=== PATIENT | male | born 1950 | race Caucasian/White ===

== ENCOUNTER 2019-02-18 09:39 | Inpatient (IN) | payer MEDICARE, MEDICAID ==
[~2019-02-18] VITALS: Ht 177.8 cm; Wt 85.3 kg
--- NOTE | 2019-02-18 10:14 | NUR ---
Pt to room from lobby.
[2019-02-18 10:24] LABS: MEAN CORPUSCULAR HEMOGLOBIN 32.8 pg (27.5-34.5); MEAN CORPUSCULAR HGB CONC 33.8 g/dL (33.2-36.2); MEAN PLATELET VOLUME 7.1 fL (7.4-10.4); PLATELET COUNT 469 x10^3/uL (130-400); RED BLOOD COUNT 4.97 x10^6/uL (4.38-5.82); RED CELL DISTRIBUTION WIDTH 13.4 % (9.4-14.8)
[2019-02-18] MEDS ORDERED: SODIUM CHLORIDE FLUSH 10ML SYR IVF ONE (10:30)
[2019-02-18 11:04] LABS: MD YES
[2019-02-18 11:06] LABS: BAND#(MANUAL) 4.13 x10^3/uL; BANDS%(MANUAL) 43 % (0-7); LYMPH#(MANUAL) 1.06 x10^3/uL (1-3.4); LYMPHS% (MANUAL) 11 % (22-44); METAMYELOCYTES% (MANUAL) 1 % (0-1); MONOS#(MANUAL) 0.96 x10^3/uL (0.3-2.7); MONOS% (MANUAL) 10 % (2-9); SEG#(MANUAL) 3.36 x10^3/uL (1.8-6.8); SEGS% (MANUAL) 35 % (42-75)
[2019-02-18 11:07] LABS: <PLATELET ESTIMATE> INCREASED; <PLT MORPHOLOGY> NORMAL PLT MORPH; <RBC MORPHOLOGY> NORMAL; PMNS WITH VACUOLES 1+
[2019-02-18 11:10] LABS: ALBUMIN 2.6 g/dL (3.4-5.0); ANION GAP 10 mmol/L (5-15); CALCIUM 8.9 mg/dL (8.5-10.1); CHLORIDE 99 mmol/L (98-107)
[2019-02-18 11:15] LABS: ALANINE AMINOTRANSFERASE 8 U/L (12-78); ALKALINE PHOSPHATASE 91 U/L (45-117); TOTAL PROTEIN 7.6 g/dL (6.4-8.2)
--- NOTE | 2019-02-18 11:18 | NUR ---
DIARRHEA, EATING MINIMALLY FOR 3 WEEKS WITH CRAMPING FOR A FEW DAYS.
[2019-02-18] MEDS ORDERED: SODIUM CHLORIDE 0.9%, 500ML IVBOLUS ONE (11:30)
--- NOTE | 2019-02-18 11:38 | NUR ---
MD EXAMING PT AND DISCUSSING PLAN TO ADMIT
--- NOTE | 2019-02-18 11:45 | NUR ---
UOB TO BATHROOM ACROSS THE WAY
[2019-02-18] MEDS ORDERED: METRONIDAZOLE PMX 500MG/100ML 100 ML ONE (12:24)
[2019-02-18] MEDS ORDERED: CEFTRIAXONE PMX 1GM/50ML 50 ML ONE (12:25)
[2019-02-18 12:27] LABS: TROPONIN I < 0.015 ng/mL (0.000-0.045)
[2019-02-18] MEDS: NS + 40MEQ KCL 1,000 ML IV SCH ×2 (12:28→15:30)
[2019-02-18] MEDS ORDERED: METRONIDAZOLE PMX 500MG/100ML 100 ML IV ONE (12:30)
[2019-02-18] MEDS ORDERED: CEFTRIAXONE PMX 1GM/50ML 50 ML IV ONE (12:30)
--- NOTE | 2019-02-18 12:42 | NUR ---
ANTIBIOTIC INFUSING NOTED ON MAR AFTER 2 SETS OF CULTURES DRAWN. ULTRASOUND AT BEDSIDE.
[2019-02-18 12:50] LABS: CLOSTRIDIUM DIFFICILE ANTIGEN NEGATIVE; CLOSTRIDIUM DIFFICILE TOXIN NEGATIVE (Negative)
--- NOTE | 2019-02-18 12:52 | NUR ---
REPORT TO CHAPARRITA LAN. PT TO BE TRANSPORTED TO FLOOR.
[2019-02-18] MEDS ORDERED: POLYETHYLENE GLYCOL 17 GM PACKET PO PRN (13:00)
[2019-02-18] MEDS ORDERED: hydrALAzine 20 MG/ML, 1ML IVPush PRN (13:00)
[2019-02-18] MEDS ORDERED: SODIUM CHLORIDE 0.9% 1,000ML IVBOLUS ONE (13:00)
[2019-02-18] MEDS ORDERED: KETOROLAC 30 MG/1 ML IV PRN (13:00)
[2019-02-18] MEDS ORDERED: ONDANSETRON ODT 4 MG PO PRN (13:00)
[2019-02-18] MEDS ORDERED: GUAIFENESIN/DM 200-20MG, 10ML UDC PO PRN (13:00)
[2019-02-18] MEDS ORDERED: IBUPROFEN 600 MG TABLET PO PRN (13:00)
--- NOTE | 2019-02-18 13:15 | NUR ---
TASK RN: ABX WAS NOT RUNNING, PUMP WITH NaCl with 40mEq POTASSIUM WAS RUNNING. D/C POTASSIUM IN NACL, RESTARTED LINE WITH ROCEPHIN. ABX RUNNING. PATIENT SENT UP WITH FLAGYL AND NACL WITH POTASSIUM AT BEDSIDE.
[2019-02-18 13:18] LABS: CRYPTOSPORIDIUM ANTIGEN Negative (Negative)
[2019-02-18] MEDS: METRONIDAZOLE PMX 500MG/100ML 100 ML IV SCH ×2 (14:00→21:56)
[2019-02-18] MEDS: ACETAMINOPHEN 325 MG TABLET PO PRN (14:02)
[2019-02-18 14:03] VITALS: BP 147/84
[2019-02-18] MEDS: ONDANSETRON 2MG/ML, 2ML IVPush PRN (14:07)
[2019-02-18] MEDS ORDERED: MAGNESIUM SULFATE PMX 2GM/50ML 50 ML IV ONE (14:30)
[2019-02-18] MEDS ORDERED: CEFTRIAXONE PMX 1GM/50ML 50 ML IV SCH (14:30)
[2019-02-18] MEDS ORDERED: CHOLECALCIFEROL 400 UNITS/ML ORAL SOL PO SCH (16:30)
[2019-02-18] MEDS: POTASSIUM CHLORIDE 10 MEQ TABLET.ER PO SCH (17:51)
[2019-02-18] MEDS: ASCORBIC ACID 500 MG TABLET PO SCH (17:51)
[2019-02-18 19:53] VITALS: BP 136/77
[2019-02-18] MEDS ORDERED: POTASSIUM CHLORIDE 10% 40 MEQ/30 ML UDC PO SCH (21:00)
[2019-02-19 02:00] VITALS: BP 122/79
[2019-02-19] MEDS: METRONIDAZOLE PMX 500MG/100ML 100 ML IV SCH ×3 (06:00→21:53)
[2019-02-19 06:06] LABS: MEAN CORPUSCULAR HEMOGLOBIN 32.8 pg (27.5-34.5); MEAN CORPUSCULAR HGB CONC 33.4 g/dL (33.2-36.2); MEAN CORPUSCULAR VOLUME 98.1 fL (81-97); MEAN PLATELET VOLUME 7.8 fL (7.4-10.4); PLATELET COUNT 479 x10^3/uL (130-400); RED BLOOD COUNT 4.55 x10^6/uL (4.38-5.82); RED CELL DISTRIBUTION WIDTH 13.7 % (9.4-14.8)
[2019-02-19 06:22] LABS: ANION GAP 6 mmol/L (5-15); CALCIUM 8.6 mg/dL (8.5-10.1); CHLORIDE 106 mmol/L (98-107); CREATININE 1.12 mg/dL (0.7-1.3)
[2019-02-19 06:57] LABS: MD YES
[2019-02-19 07:02] LABS: <RBC MORPHOLOGY> NORMAL; BAND#(MANUAL) 3.31 x10^3/uL; BANDS%(MANUAL) 36 % (0-7); LYMPHS% (MANUAL) 12 % (22-44); MONOS#(MANUAL) 0.83 x10^3/uL (0.3-2.7); MONOS% (MANUAL) 9 % (2-9); MYELOCYTES# (MANUAL) 0.09 x10^3/uL (0-0); MYELOCYTES% (MANUAL) 1 % (0-0); SEG#(MANUAL) 3.86 x10^3/uL (1.8-6.8); SEGS% (MANUAL) 42 % (42-75)
[2019-02-19 07:03] LABS: <PLATELET ESTIMATE> INCREASED; <PLT MORPHOLOGY> NORMAL PLT MORPH; TOXIC GRAN 1+
[2019-02-19] MEDS ORDERED: POTASSIUM CHLORIDE 20 MEQ TAB.ER.PRT PO ONE ×2 (07:30→10:30)
[2019-02-19] MEDS: POTASSIUM CHLORIDE 10 MEQ TABLET.ER PO SCH ×2 (08:00→17:40)
[2019-02-19] MEDS ORDERED: ACETAMINOPHEN 500 MG TABLET PO ONE (08:00)
[2019-02-19] MEDS: CHOLECALCIFEROL 1,000 UNIT TABLET PO SCH (08:35)
[2019-02-19] MEDS: MULTIVITS,STRESS FORMULA 1 TABLET PO SCH (08:35)
[2019-02-19] MEDS: ASCORBIC ACID 500 MG TABLET PO SCH ×2 (08:35→17:40)
[2019-02-19] MEDS: LACTATED RINGERS 1,000 ML IV SCH ×3 (08:40→21:55)
[2019-02-19 09:03] VITALS: BP 110/69
[2019-02-19] MEDS: CEFTRIAXONE PMX 1GM/50ML 50 ML IV SCH (12:43)
[2019-02-19 14:19] VITALS: BP 115/77
[2019-02-19 16:56] LABS: ANION GAP 5 mmol/L (5-15); CALCIUM 8.3 mg/dL (8.5-10.1); CHLORIDE 110 mmol/L (98-107); CREATININE 1.01 mg/dL (0.7-1.3)
[2019-02-19] MEDS: ACETAMINOPHEN 325 MG TABLET PO PRN ×2 (19:54→23:57)
[2019-02-19] MEDS ORDERED: LACTATED RINGERS 1,000 ML IVBOLUS ONE (20:00)
[2019-02-19] MEDS: TRAZODONE 50MG TABLET PO PRN (20:49)
[2019-02-19] MEDS ORDERED: LORazepam 2 MG/ML, 1ML IVPush PRN (21:00)
[2019-02-19] MEDS: METOCLOPRAMIDE 5 MG/ML, 2ML IVPush PRN (21:18)
[2019-02-20 00:10] LABS: CULTURE INDICATED? YES; MICROSCOPIC INDICATED
[2019-02-20] MEDS: CEFTRIAXONE PMX 1GM/50ML 50 ML IV SCH (00:39)
[2019-02-20 04:00] VITALS: BP 120/64
[2019-02-20 04:26] LABS: MEAN CORPUSCULAR HEMOGLOBIN 32.5 pg (27.5-34.5); MEAN CORPUSCULAR HGB CONC 33.1 g/dL (33.2-36.2); MEAN CORPUSCULAR VOLUME 98.4 fL (81-97); MEAN PLATELET VOLUME 7.6 fL (7.4-10.4); PLATELET COUNT 402 x10^3/uL (130-400); RED BLOOD COUNT 4.02 x10^6/uL (4.38-5.82)
[2019-02-20 05:00] LABS: ANION GAP 7 mmol/L (5-15); CALCIUM 8.2 mg/dL (8.5-10.1); CHLORIDE 110 mmol/L (98-107)
[2019-02-20 05:02] LABS: CREATININE 1.03 mg/dL (0.7-1.3)
[2019-02-20 05:35] LABS: MD YES
[2019-02-20 05:38] LABS: BAND#(MANUAL) 3.44 x10^3/uL; BANDS%(MANUAL) 42 % (0-7); EOS#(MANUAL) 0.08 x10^3/uL (0.0-0.4); EOS% (MANUAL) 1 % (1-7); LYMPH#(MANUAL) 0.66 x10^3/uL (1-3.4); LYMPHS% (MANUAL) 8 % (22-44); METAMYELOCYTES# (MANUAL) 0.16 x10^3/uL (0-0); METAMYELOCYTES% (MANUAL) 2 % (0-1); MONOS#(MANUAL) 0.25 x10^3/uL (0.3-2.7); MONOS% (MANUAL) 3 % (2-9); SEG#(MANUAL) 3.61 x10^3/uL (1.8-6.8); SEGS% (MANUAL) 44 % (42-75)
[2019-02-20 05:39] LABS: <RBC MORPHOLOGY> NORMAL
[2019-02-20 05:40] LABS: <PLATELET ESTIMATE> INCREASED; <PLT MORPHOLOGY> NORMAL PLT MORPH; PMNS WITH VACUOLES 1+; TOXIC GRAN 1+
[2019-02-20] MEDS: METRONIDAZOLE PMX 500MG/100ML 100 ML IV SCH ×2 (05:57→20:16)
[2019-02-20] MEDS ORDERED: SODIUM PHOSPHATE 10 MMOL in SODIUM CHLORIDE 0.9% 500 ML IV ONE (07:30)
[2019-02-20] MEDS ORDERED: POTASSIUM CHLORIDE 20 MEQ TAB.ER.PRT PO ONE (07:30)
[2019-02-20] MEDS: SODIUM CHLORIDE 0.9% 1,000 ML IV SCH ×2 (08:26→11:47)
[2019-02-20] MEDS: MULTIVITS,STRESS FORMULA 1 TABLET PO SCH (08:26)
[2019-02-20] MEDS: CHOLECALCIFEROL 1,000 UNIT TABLET PO SCH (08:26)
[2019-02-20] MEDS: ASCORBIC ACID 500 MG TABLET PO SCH ×2 (08:31→17:00)
[2019-02-20 09:14] LABS: CRYPTOSPORIDIUM ANTIGEN Negative (Negative)
[2019-02-20] MEDS: ACETAMINOPHEN 325 MG TABLET PO PRN (09:56)
[2019-02-20] MEDS ORDERED: CEFTRIAXONE PMX 1GM/50ML 50 ML IV SCH (11:30)
[2019-02-20] MEDS ORDERED: metroNIDAZOLE 250 MG TABLET PO SCH (12:00)
[2019-02-20] MEDS: LORazepam 2 MG/ML, 1ML IVPush PRN (17:11)
[2019-02-20] MEDS ORDERED: ACETAMINOPHEN 650 MG SUPP ONE (21:14)
[2019-02-20] MEDS: HYDROmorphone 2 MG/ML, 1ML IVPush PRN (21:23)
[2019-02-20] MEDS ORDERED: ACETAMINOPHEN 650 MG SUPP PR ONE (21:30)
[2019-02-20] MEDS: PIPERACILLIN/TAZO/PMX 3.375GM 50 ML IV SCH (23:03)
[2019-02-20] MEDS ORDERED: OMNIPAQUE 350 MG/ML, 100ML BOTTLE ONE (23:28)
[2019-02-21] MEDS: METRONIDAZOLE PMX 500MG/100ML 100 ML IV SCH (03:51)
[2019-02-21 04:16] VITALS: BP 127/66
[2019-02-21] MEDS: PIPERACILLIN/TAZO/PMX 3.375GM 50 ML IV SCH ×4 (05:22→21:59)
[2019-02-21] MEDS: ASCORBIC ACID 500 MG TABLET PO SCH ×2 (08:00→17:00)
[2019-02-21] MEDS: MULTIVITS,STRESS FORMULA 1 TABLET PO SCH (08:05)
[2019-02-21] MEDS: CHOLECALCIFEROL 1,000 UNIT TABLET PO SCH (08:06)
[2019-02-21] MEDS: SODIUM CHLORIDE 0.9% 1,000 ML IV SCH ×2 (10:12→19:19)
[2019-02-21] MEDS ORDERED: PROPOFOL 10 MG/ML, 20ML ONE (10:54)
[2019-02-21] MEDS ORDERED: SUCCINYLCHOLINE 20 MG/ML, 10ML ONE (10:54)
[2019-02-21] MEDS ORDERED: ONDANSETRON 2MG/ML, 2ML ONE (10:54)
[2019-02-21] MEDS ORDERED: FENTANYL PF 100 MCG/2ML ONE (10:54)
[2019-02-21] MEDS ORDERED: ROCURONIUM 10MG/ML,5ML ONE (10:54)
[2019-02-21] MEDS ORDERED: DEXAMETHASONE 4 MG/ML, 1ML ONE (10:54)
[2019-02-22] MEDS: TRAZODONE 50MG TABLET PO PRN (01:34)
[2019-02-22] MEDS: SODIUM CHLORIDE 0.9% 1,000 ML IV SCH ×2 (04:22→17:05)
[2019-02-22] MEDS: PIPERACILLIN/TAZO/PMX 3.375GM 50 ML IV SCH ×4 (04:35→22:10)
[2019-02-22] MEDS ORDERED: SODIUM PHOSPHATE 20 MMOL in SODIUM CHLORIDE 0.9% 500 ML IV ONE (07:30)
[2019-02-22] MEDS: ASCORBIC ACID 500 MG TABLET PO SCH ×2 (08:00→17:06)
[2019-02-22] MEDS: MULTIVITS,STRESS FORMULA 1 TABLET PO SCH (08:14)
[2019-02-22] MEDS: CHOLECALCIFEROL 1,000 UNIT TABLET PO SCH (08:14)
[2019-02-22 08:18] LABS: MEAN CORPUSCULAR HEMOGLOBIN 32.4 pg (27.5-34.5); MEAN CORPUSCULAR HGB CONC 33.3 g/dL (33.2-36.2); MEAN CORPUSCULAR VOLUME 97.3 fL (81-97); MEAN PLATELET VOLUME 7.1 fL (7.4-10.4); PLATELET COUNT 365 x10^3/uL (130-400); RED BLOOD COUNT 4.43 x10^6/uL (4.38-5.82); RED CELL DISTRIBUTION WIDTH 14.4 % (9.4-14.8)
[2019-02-22 09:45] LABS: BASOPHILS # (AUTO) 0.03 x10^3/uL (0-0.1); BASOPHILS % (AUTO) 0 % (0-1); EOSINOPHILS # (AUTO) 0.01 x10^3/uL (0-0.4); EOSINOPHILS % (AUTO) 0 % (1-7); LYMPHOCYTES % (AUTO) 5 % (22-44); MD SCAN; MONOCYTES % (AUTO) 10 % (2-9); NEUTROPHILS # (AUTO) 12.48 x10^3/uL (1.8-6.8); NEUTROPHILS % (AUTO) 85 % (42-75)
[2019-02-22 16:03] LABS: CRYPTOSPORIDIUM ANTIGEN Negative (Negative)
[2019-02-22 21:22] VITALS: BP 137/83
[2019-02-22] MEDS ORDERED: DEXAMETHASONE 4 MG/ML, 1ML IVPush ONE (21:30)
[2019-02-23 01:56] VITALS: BP 129/82
[2019-02-23] MEDS: PIPERACILLIN/TAZO/PMX 3.375GM 50 ML IV SCH ×4 (04:11→23:18)
[2019-02-23] MEDS: SODIUM CHLORIDE 0.9% 1,000 ML IV SCH ×2 (04:12→13:00)
[2019-02-23 05:38] LABS: BASOPHILS % (AUTO) 0 % (0-1); EOSINOPHILS # (AUTO) 0.04 x10^3/uL (0-0.4); EOSINOPHILS % (AUTO) 0 % (1-7); LYMPHOCYTES # (AUTO) 0.86 x10^3/uL (1-3.4); LYMPHOCYTES % (AUTO) 8 % (22-44); MD NO; MEAN CORPUSCULAR HEMOGLOBIN 32.6 pg (27.5-34.5); MEAN CORPUSCULAR VOLUME 98.6 fL (81-97); MEAN PLATELET VOLUME 7.6 fL (7.4-10.4); MONOCYTES # (AUTO) 0.76 x10^3/uL (0.2-0.8); MONOCYTES % (AUTO) 7 % (2-9); NEUTROPHILS # (AUTO) 8.92 x10^3/uL (1.8-6.8); NEUTROPHILS % (AUTO) 84 % (42-75); PLATELET COUNT 308 x10^3/uL (130-400); RED BLOOD COUNT 4.11 x10^6/uL (4.38-5.82); RED CELL DISTRIBUTION WIDTH 14.2 % (9.4-14.8)
[2019-02-23 08:09] VITALS: BP 150/89
[2019-02-23] MEDS: CHOLECALCIFEROL 1,000 UNIT TABLET PO SCH (10:55)
[2019-02-23] MEDS: MULTIVITS,STRESS FORMULA 1 TABLET PO SCH (10:55)
[2019-02-23] MEDS: ASCORBIC ACID 500 MG TABLET PO SCH ×3 (10:55→17:32)
[2019-02-23 14:25] VITALS: BP 115/64
[2019-02-23 20:12] VITALS: BP 104/64
[2019-02-24 03:06] VITALS: BP 118/69
[2019-02-24] MEDS: PIPERACILLIN/TAZO/PMX 3.375GM 50 ML IV SCH ×4 (05:24→22:44)
[2019-02-24 05:57] LABS: MEAN CORPUSCULAR HEMOGLOBIN 32.6 pg (27.5-34.5); MEAN CORPUSCULAR HGB CONC 33.6 g/dL (33.2-36.2); MEAN PLATELET VOLUME 7.7 fL (7.4-10.4); PLATELET COUNT 273 x10^3/uL (130-400); RED CELL DISTRIBUTION WIDTH 14.4 % (9.4-14.8)
[2019-02-24 06:00] LABS: CHLORIDE 116 mmol/L (98-107)
[2019-02-24 06:11] LABS: ALANINE AMINOTRANSFERASE 16 U/L (12-78); ALBUMIN 1.5 g/dL (3.4-5.0); ALKALINE PHOSPHATASE 83 U/L (45-117); BILIRUBIN,TOTAL 1.2 mg/dL (0.2-1.0); CALCIUM 7.5 mg/dL (8.5-10.1); CREATININE 0.93 mg/dL (0.7-1.3); TOTAL PROTEIN 4.9 g/dL (6.4-8.2)
[2019-02-24 06:20] LABS: MD YES
[2019-02-24 06:21] LABS: BAND#(MANUAL) 1.45 x10^3/uL; BANDS%(MANUAL) 8 % (0-7); LYMPH#(MANUAL) 1.63 x10^3/uL (1-3.4); LYMPHS% (MANUAL) 9 % (22-44); MONOS#(MANUAL) 0.36 x10^3/uL (0.3-2.7); MONOS% (MANUAL) 2 % (2-9); SEG#(MANUAL) 14.66 x10^3/uL (1.8-6.8); SEGS% (MANUAL) 81 % (42-75)
[2019-02-24 06:22] LABS: <PLATELET ESTIMATE> ADEQUATE; <PLT MORPHOLOGY> NORMAL PLT MORPH; <RBC MORPHOLOGY> NORMAL; TOXIC GRAN 1+
[2019-02-24 06:30] LABS: ANION GAP 6 mmol/L (5-15)
[2019-02-24] MEDS ORDERED: POTASSIUM CHLORIDE 40 MEQ in SODIUM CHLORIDE 0.9% 500 ML IV ONE (07:00)
[2019-02-24] MEDS: ASCORBIC ACID 500 MG TABLET PO SCH ×2 (07:40→17:19)
[2019-02-24] MEDS: POTASSIUM CHLORIDE 20 MEQ TAB.ER.PRT PO SCH ×2 (07:40→17:19)
[2019-02-24] MEDS: CHOLECALCIFEROL 1,000 UNIT TABLET PO SCH (07:40)
[2019-02-24] MEDS: MULTIVITS,STRESS FORMULA 1 TABLET PO SCH (07:45)
[2019-02-24 08:02] VITALS: BP 129/65
[2019-02-24] MEDS: TRAZODONE 50MG TABLET PO PRN (10:00)
[2019-02-24 10:54] LABS: HCT (SEDRATE) 40.3 % (39.2-51.8)
[2019-02-24 12:27] VITALS: BP 124/74
[2019-02-24] MEDS: ONDANSETRON 2MG/ML, 2ML IVPush PRN (13:12)
[2019-02-24] MEDS: HYDROmorphone 2 MG/ML, 1ML IVPush PRN (13:12)
[2019-02-24 19:45] VITALS: BP 123/75
[2019-02-24] MEDS: LORazepam 2 MG/ML, 1ML IVPush PRN (22:44)
[2019-02-25 01:43] VITALS: BP 137/82
[2019-02-25] MEDS: PIPERACILLIN/TAZO/PMX 3.375GM 50 ML IV SCH ×4 (05:33→23:05)
[2019-02-25 06:10] LABS: ANION GAP 3 mmol/L (5-15); CALCIUM 7.8 mg/dL (8.5-10.1); CHLORIDE 114 mmol/L (98-107); CREATININE 1.04 mg/dL (0.7-1.3)
[2019-02-25 06:12] LABS: MEAN CORPUSCULAR HEMOGLOBIN 32.1 pg (27.5-34.5); MEAN CORPUSCULAR HGB CONC 33.3 g/dL (33.2-36.2); MEAN CORPUSCULAR VOLUME 96.3 fL (81-97); MEAN PLATELET VOLUME 7.5 fL (7.4-10.4); PLATELET COUNT 309 x10^3/uL (130-400); RED BLOOD COUNT 4.11 x10^6/uL (4.38-5.82); RED CELL DISTRIBUTION WIDTH 13.8 % (9.4-14.8)
[2019-02-25 06:58] LABS: MD YES
[2019-02-25 07:02] LABS: BAND#(MANUAL) 0.22 x10^3/uL; BANDS%(MANUAL) 1 % (0-7); LYMPH#(MANUAL) 1.99 x10^3/uL (1-3.4); LYMPHS% (MANUAL) 9 % (22-44); METAMYELOCYTES# (MANUAL) 0.22 x10^3/uL (0-0); METAMYELOCYTES% (MANUAL) 1 % (0-1); MONOS#(MANUAL) 0.88 x10^3/uL (0.3-2.7); MONOS% (MANUAL) 4 % (2-9); REACTIVE LYMPHS # (MANUAL) 0.44 x10^3/uL (0-0); REACTIVE LYMPHS % (MANUAL) 2 % (0-0); SEG#(MANUAL) 18.34 x10^3/uL (1.8-6.8); SEGS% (MANUAL) 83 % (42-75)
[2019-02-25 07:03] LABS: <PLATELET ESTIMATE> ADEQUATE; <PLT MORPHOLOGY> NORMAL PLT MORPH; <RBC MORPHOLOGY> NORMAL; TOXIC GRAN 1+
[2019-02-25 07:50] VITALS: BP 127/70
[2019-02-25] MEDS: MULTIVITS,STRESS FORMULA 1 TABLET PO SCH (08:43)
[2019-02-25] MEDS: CHOLECALCIFEROL 1,000 UNIT TABLET PO SCH (08:43)
[2019-02-25] MEDS: ASCORBIC ACID 500 MG TABLET PO SCH (08:43)
[2019-02-25] MEDS: ENOXAPARIN 40 MG/0.4 ML SQ SCH (09:43)
[2019-02-25] MEDS: NS + 40MEQ KCL 1,000 ML IV SCH ×2 (09:43→21:31)
[2019-02-25 12:25] VITALS: BP 129/76
[2019-02-25 13:19] LABS: CALCIUM 7.8 mg/dL (8.5-10.1); CREATININE 1.01 mg/dL (0.7-1.3)
[2019-02-25 13:38] LABS: ANION GAP 6 mmol/L (5-15); CHLORIDE 110 mmol/L (98-107)
[2019-02-25] MEDS ORDERED: TPN PER PHARMACY MC PRN (16:00)
[2019-02-25] MEDS ORDERED: FILTER, DISP 1.2 MICRON FOR TPN/PVN IV PRN (16:00)
[2019-02-25] MEDS ORDERED: AMINO ACID 10% IV SCH ×2 (17:00)
[2019-02-25] MEDS ORDERED: DEXTROSE 70% IV SCH ×2 (17:00)
[2019-02-25] MEDS ORDERED: DEXTROSE 50%, 50ML SYRINGE IVPush PRN (17:00)
[2019-02-25] MEDS ORDERED: SMOF TPN IV SCH ×2 (17:00)
[2019-02-25] MEDS ORDERED: DEXTROSE 10% 500 ML IV PRN (17:00)
[2019-02-25] MEDS ORDERED: [UNRECOGNIZED DRUG - OTHER] IV SCH ×2 (17:00)
[2019-02-25] MEDS ORDERED: FAT EMUL IV SCH ×2 (17:00)
[2019-02-25 18:50] VITALS: BP 134/74
[2019-02-25] MEDS: INSULIN REGULAR LOW DOSE Q6H X 48HRS SQ-INSULIN SCH (20:04)
[2019-02-26 01:09] VITALS: BP 133/82
[2019-02-26] MEDS: INSULIN REGULAR LOW DOSE Q6H X 48HRS SQ-INSULIN SCH ×4 (03:00→21:00)
[2019-02-26] MEDS: METOCLOPRAMIDE 5 MG/ML, 2ML IVPush PRN (04:56)
[2019-02-26] MEDS: PIPERACILLIN/TAZO/PMX 3.375GM 50 ML IV SCH ×2 (05:00→11:00)
[2019-02-26 06:04] LABS: MEAN CORPUSCULAR HEMOGLOBIN 31.7 pg (27.5-34.5); MEAN PLATELET VOLUME 7.6 fL (7.4-10.4); PLATELET COUNT 333 x10^3/uL (130-400); RED CELL DISTRIBUTION WIDTH 14.2 % (9.4-14.8)
[2019-02-26 06:09] LABS: ANION GAP 8 mmol/L (5-15); CALCIUM 7.6 mg/dL (8.5-10.1); CHLORIDE 112 mmol/L (98-107); CREATININE 0.88 mg/dL (0.7-1.3); TRIGLYCERIDES 125 mg/dL (50-200)
[2019-02-26 06:13] LABS: PREALBUMIN 5.4 mg/dL (20.0-40.0)
[2019-02-26] MEDS: LORazepam 2 MG/ML, 1ML IVPush PRN (06:16)
[2019-02-26 06:45] LABS: MD YES
[2019-02-26 06:46] LABS: <RBC MORPHOLOGY> NORMAL; BANDS%(MANUAL) 1 % (0-7); LYMPH#(MANUAL) 0.79 x10^3/uL (1-3.4); LYMPHS% (MANUAL) 4 % (22-44); METAMYELOCYTES% (MANUAL) 1 % (0-1); MONOS#(MANUAL) 0.59 x10^3/uL (0.3-2.7); MONOS% (MANUAL) 3 % (2-9); SEG#(MANUAL) 17.93 x10^3/uL (1.8-6.8); SEGS% (MANUAL) 91 % (42-75); TOXIC GRAN 1+
[2019-02-26 06:47] LABS: <PLATELET ESTIMATE> ADEQUATE; <PLT MORPHOLOGY> NORMAL PLT MORPH
[2019-02-26 06:59] VITALS: BP 122/75
[2019-02-26] MEDS: CHOLECALCIFEROL 1,000 UNIT TABLET PO SCH (08:43)
[2019-02-26] MEDS: MULTIVITS,STRESS FORMULA 1 TABLET PO SCH (08:43)
[2019-02-26] MEDS: ENOXAPARIN 40 MG/0.4 ML SQ SCH (08:43)
[2019-02-26] MEDS: ACETAMINOPHEN 325 MG TABLET PO PRN (08:51)
[2019-02-26] MEDS: NS + 40MEQ KCL 1,000 ML IV SCH (09:21)
[2019-02-26] MEDS ORDERED: OMNIPAQUE 350 MG/ML, 100ML BOTTLE ONE (11:55)
[2019-02-26 13:52] VITALS: BP 125/88
[2019-02-26] MEDS ORDERED: VANCOMYCIN PER PHARMACY MC PRN (14:00)
[2019-02-26 14:32] LABS: MICROSCOPIC INDICATED
[2019-02-26] MEDS ORDERED: HYDROmorphone 1 MG/ML, 1ML VIAL ONE ×2 (14:51→20:42)
[2019-02-26] MEDS: MEROPENEM 1 GM in SODIUM CHLORIDE 0.9% 100 ML IV SCH ×2 (14:58→23:11)
[2019-02-26 15:00] LABS: CULTURE INDICATED? NO
[2019-02-26] MEDS ORDERED: HYDROmorphone 1 MG/ML, 1ML INJ IV PRN (15:00)
[2019-02-26] MEDS ORDERED: VANCOMYCIN 2,100 MG in SODIUM CHLORIDE 0.9% 500 ML IV ONE (15:00)
[2019-02-26] MEDS ORDERED: FENTANYL PF 250 MCG/5ML ONE (16:16)
[2019-02-26] MEDS ORDERED: MIDAZOLAM 1 MG/ML, 2ML ONE (16:16)
[2019-02-26] MEDS ORDERED: PROPOFOL 10 MG/ML, 20ML ONE (16:17)
[2019-02-26] MEDS ORDERED: DEXAMETHASONE 4 MG/ML, 1ML ONE ×2 (16:18→19:39)
[2019-02-26] MEDS ORDERED: PHENYLEPHRINE 10 MG/ML ONE (16:46)
[2019-02-26] MEDS: DEXTROSE 70% IV SCH ×2 (16:47→23:14)
[2019-02-26] MEDS: [UNRECOGNIZED DRUG - OTHER] IV SCH ×2 (16:47→23:14)
[2019-02-26] MEDS: SMOF TPN IV SCH ×2 (16:47→23:14)
[2019-02-26] MEDS: FAT EMUL IV SCH ×2 (16:47→23:14)
[2019-02-26] MEDS: AMINO ACID 10% IV SCH ×2 (16:47→23:14)
[2019-02-26] MEDS ORDERED: SODIUM CHLORIDE 0.9% 1,000 ML IV SCH (17:00)
[2019-02-26] MEDS ORDERED: ALBUMIN HUMAN 5% 500 ML ONE ×2 (17:52→18:17)
[2019-02-26] MEDS ORDERED: ROCURONIUM 10MG/ML,5ML ONE ×2 (19:39)
[2019-02-26] MEDS ORDERED: ONDANSETRON 2MG/ML, 2ML ONE ×2 (19:39)
[2019-02-26] MEDS ORDERED: SUGAMMADEX 200 MG/2 ML IVPush ONE (19:39)
[2019-02-26] MEDS ORDERED: PROMETHAZINE 25 MG/ML, 1ML IV PRN (20:30)
[2019-02-26] MEDS ORDERED: OXYcodone 5 MG/5 ML ORAL.SOL UDC PO PRN (20:30)
[2019-02-26] MEDS ORDERED: ALBUTEROL SULFATE 2.5 MG/3 ML NPPB PRN (20:30)
[2019-02-26] MEDS ORDERED: hydrALAzine 20 MG/ML, 1ML IV PRN (20:30)
[2019-02-26] MEDS ORDERED: PROMETHAZINE 12.5 MG SUPP PR PRN (20:30)
[2019-02-26] MEDS ORDERED: LABETALOL 5MG/ML, 20ML IV PRN (20:30)
[2019-02-26] MEDS ORDERED: FENTANYL PF 100 MCG/2ML IV PRN (20:30)
[2019-02-26] MEDS ORDERED: DIAZEPAM 5 MG/ML, 2ML IVPush PRN (20:30)
[2019-02-26] MEDS ORDERED: ONDANSETRON ODT 8 MG PO PRN (20:30)
[2019-02-26] MEDS ORDERED: HALOPERIDOL 5 MG/ML IV PRN (20:30)
[2019-02-26] MEDS ORDERED: MEPERIDINE/PF 25MG/ML,1ML IVPush PRN (20:30)
[2019-02-26] MEDS ORDERED: EPHEDRINE 50 MG/ML, 1ML IVPush PRN (20:30)
[2019-02-26] MEDS ORDERED: MIDAZOLAM 1 MG/ML, 2ML IV PRN (20:30)
[2019-02-26] MEDS ORDERED: ONDANSETRON 2MG/ML, 2ML IV PRN (20:30)
[2019-02-26] MEDS: HYDROmorphone 2 MG/ML, 1ML IVPush PRN ×2 (20:43→21:01)
[2019-02-26 21:38] VITALS: BP 133/73
[2019-02-27 01:52] VITALS: BP 135/83
[2019-02-27] MEDS: VANCOMYCIN 1,300 MG in SODIUM CHLORIDE 0.9% 250 ML IV SCH ×2 (02:50→15:38)
[2019-02-27] MEDS: INSULIN REGULAR LOW DOSE Q6H X 48HRS SQ-INSULIN SCH ×2 (03:27→08:40)
[2019-02-27] MEDS: MEROPENEM 1 GM in SODIUM CHLORIDE 0.9% 100 ML IV SCH ×3 (06:11→22:45)
[2019-02-27 06:34] LABS: MEAN CORPUSCULAR HEMOGLOBIN 32.1 pg (27.5-34.5); MEAN CORPUSCULAR HGB CONC 33.2 g/dL (33.2-36.2); MEAN CORPUSCULAR VOLUME 96.9 fL (81-97); MEAN PLATELET VOLUME 7.2 fL (7.4-10.4); PLATELET COUNT 372 x10^3/uL (130-400); RED BLOOD COUNT 3.75 x10^6/uL (4.38-5.82); RED CELL DISTRIBUTION WIDTH 14.5 % (9.4-14.8)
[2019-02-27 06:38] LABS: ANION GAP 3 mmol/L (5-15); CALCIUM 7.4 mg/dL (8.5-10.1); CHLORIDE 115 mmol/L (98-107); CREATININE 0.89 mg/dL (0.7-1.3)
[2019-02-27 06:58] LABS: MD YES
[2019-02-27 07:00] LABS: <PLATELET ESTIMATE> ADEQUATE; <PLT MORPHOLOGY> NORMAL PLT MORPH; LYMPH#(MANUAL) 0.28 x10^3/uL (1-3.4); LYMPHS% (MANUAL) 1 % (22-44); MONOS#(MANUAL) 0.28 x10^3/uL (0.3-2.7); MONOS% (MANUAL) 1 % (2-9); SEG#(MANUAL) 27.24 x10^3/uL (1.8-6.8); SEGS% (MANUAL) 98 % (42-75)
[2019-02-27 07:01] LABS: POLYCHROMASIA 1+; TOXIC GRAN 1+
[2019-02-27 07:30] VITALS: BP 134/83
[2019-02-27] MEDS ORDERED: SODIUM CHLORIDE 0.9% 100 ML IV SCH (08:00)
[2019-02-27] MEDS ORDERED: SODIUM CHLORIDE 0.9% 1,000 ML IV SCH (08:00)
[2019-02-27] MEDS: SODIUM CHLORIDE 0.9% 1,000 ML IV SCH (08:26)
[2019-02-27] MEDS: ENOXAPARIN 40 MG/0.4 ML SQ SCH (08:40)
[2019-02-27] MEDS: CHOLECALCIFEROL 1,000 UNIT TABLET PO SCH (08:40)
[2019-02-27] MEDS: MULTIVITS,STRESS FORMULA 1 TABLET PO SCH (08:40)
[2019-02-27] MEDS: PANTOPRAZOLE 40 MG IV IVPush SCH ×2 (09:31→21:22)
[2019-02-27 14:30] VITALS: BP 151/91
[2019-02-27] MEDS: INSULIN REGULAR MEDIUM DOSE Q6H X 48HRS SQ-INSULIN SCH ×2 (15:45→21:00)
[2019-02-27] MEDS ORDERED: SMOF TPN IV SCH (17:00)
[2019-02-27] MEDS ORDERED: AMINO ACID 10% IV SCH (17:00)
[2019-02-27] MEDS ORDERED: FAT EMUL IV SCH (17:00)
[2019-02-27] MEDS ORDERED: [UNRECOGNIZED DRUG - OTHER] IV SCH (17:00)
[2019-02-27] MEDS ORDERED: DEXTROSE 70% IV SCH (17:00)
[2019-02-27] MEDS: FILTER, DISP 1.2 MICRON FOR TPN/PVN IV PRN (17:53)
[2019-02-27 19:38] VITALS: BP 157/80
[2019-02-27] MEDS ORDERED: INSULIN REGULAR LOW DOSE QDAY SQ-INSULIN SCH (21:00)
[2019-02-27] MEDS: HYDROmorphone 1 MG/ML, 1ML VIAL IV PRN (21:49)
[2019-02-28 02:50] VITALS: BP 153/91
[2019-02-28] MEDS: INSULIN REGULAR MEDIUM DOSE Q6H X 48HRS SQ-INSULIN SCH ×4 (03:00→20:51)
[2019-02-28] MEDS: VANCOMYCIN 1,300 MG in SODIUM CHLORIDE 0.9% 250 ML IV SCH ×2 (03:02→16:07)
[2019-02-28 03:17] LABS: ALBUMIN 1.5 g/dL (3.4-5.0); ANION GAP 4 mmol/L (5-15); CALCIUM 7.4 mg/dL (8.5-10.1); CHLORIDE 114 mmol/L (98-107); CREATININE 0.79 mg/dL (0.7-1.3)
[2019-02-28 03:43] LABS: MEAN CORPUSCULAR HEMOGLOBIN 32.6 pg (27.5-34.5); MEAN CORPUSCULAR HGB CONC 32.8 g/dL (33.2-36.2); MEAN CORPUSCULAR VOLUME 99.2 fL (81-97); MEAN PLATELET VOLUME 8.4 fL (7.4-10.4); PLATELET COUNT 283 x10^3/uL (130-400); RED BLOOD COUNT 3.41 x10^6/uL (4.38-5.82); RED CELL DISTRIBUTION WIDTH 14.4 % (9.4-14.8)
[2019-02-28 03:44] LABS: MD YES
[2019-02-28 03:46] LABS: ANISOCYTOSIS 1+; LYMPH#(MANUAL) 0.78 x10^3/uL (1-3.4); LYMPHS% (MANUAL) 3 % (22-44); MONOS#(MANUAL) 0.26 x10^3/uL (0.3-2.7); MONOS% (MANUAL) 1 % (2-9); SEG#(MANUAL) 25.06 x10^3/uL (1.8-6.8); SEGS% (MANUAL) 96 % (42-75)
[2019-02-28 03:47] LABS: <PLATELET ESTIMATE> ADEQUATE; <PLT MORPHOLOGY> NORMAL PLT MORPH; POLYCHROMASIA 1+
[2019-02-28] MEDS: SODIUM CHLORIDE 0.9% 1,000 ML IV SCH (06:29)
[2019-02-28] MEDS: MEROPENEM 1 GM in SODIUM CHLORIDE 0.9% 100 ML IV SCH ×3 (06:29→23:24)
[2019-02-28 07:45] VITALS: BP 149/85
[2019-02-28] MEDS: PANTOPRAZOLE 40 MG IV IVPush SCH ×2 (08:31→20:57)
[2019-02-28] MEDS: ENOXAPARIN 40 MG/0.4 ML SQ SCH (08:32)
[2019-02-28] MEDS: MULTIVITS,STRESS FORMULA 1 TABLET PO SCH (08:32)
[2019-02-28] MEDS: CHOLECALCIFEROL 1,000 UNIT TABLET PO SCH (08:32)
[2019-02-28] MEDS: HYDROmorphone 1 MG/ML, 1ML VIAL IV PRN ×3 (08:40→20:57)
[2019-02-28 08:45] VITALS: BP 158/88
[2019-02-28 13:55] VITALS: BP 161/88
[2019-02-28] MEDS: FILTER, DISP 1.2 MICRON FOR TPN/PVN IV PRN (16:34)
[2019-02-28] MEDS ORDERED: FAT EMUL IV SCH (17:00)
[2019-02-28] MEDS ORDERED: DEXTROSE 70% IV SCH (17:00)
[2019-02-28] MEDS ORDERED: SMOF TPN IV SCH (17:00)
[2019-02-28] MEDS ORDERED: AMINO ACID 10% IV SCH (17:00)
[2019-02-28] MEDS ORDERED: [UNRECOGNIZED DRUG - OTHER] IV SCH (17:00)
[2019-02-28 20:33] VITALS: BP 155/90
[2019-03-01 01:46] VITALS: BP 157/88
[2019-03-01] MEDS: INSULIN REGULAR MEDIUM DOSE Q6H X 48HRS SQ-INSULIN SCH ×2 (03:00→08:57)
[2019-03-01] MEDS: HYDROmorphone 1 MG/ML, 1ML VIAL IV PRN ×6 (03:39→23:45)
[2019-03-01] MEDS: VANCOMYCIN 1,300 MG in SODIUM CHLORIDE 0.9% 250 ML IV SCH (03:45)
[2019-03-01 04:37] LABS: ALBUMIN 1.5 g/dL (3.4-5.0); ANION GAP 5 mmol/L (5-15); CALCIUM 7.7 mg/dL (8.5-10.1); CHLORIDE 107 mmol/L (98-107); CREATININE 0.73 mg/dL (0.7-1.3)
[2019-03-01 04:55] LABS: MEAN CORPUSCULAR HEMOGLOBIN 32.1 pg (27.5-34.5); MEAN CORPUSCULAR VOLUME 97.2 fL (81-97); MEAN PLATELET VOLUME 7.8 fL (7.4-10.4); PLATELET COUNT 199 x10^3/uL (130-400); RED BLOOD COUNT 3.79 x10^6/uL (4.38-5.82); RED CELL DISTRIBUTION WIDTH 14.5 % (9.4-14.8)
[2019-03-01 05:19] LABS: MD YES
[2019-03-01 05:21] LABS: ANISOCYTOSIS 1+; BAND#(MANUAL) 0.17 x10^3/uL; BANDS%(MANUAL) 1 % (0-7); EOS#(MANUAL) 0.69 x10^3/uL (0.0-0.4); EOS% (MANUAL) 4 % (1-7); LYMPH#(MANUAL) 0.52 x10^3/uL (1-3.4); LYMPHS% (MANUAL) 3 % (22-44); MONOS#(MANUAL) 0.69 x10^3/uL (0.3-2.7); MONOS% (MANUAL) 4 % (2-9); POLYCHROMASIA 1+; SEG#(MANUAL) 15.14 x10^3/uL (1.8-6.8); SEGS% (MANUAL) 88 % (42-75); TOXIC GRAN 1+
[2019-03-01 05:22] LABS: <PLATELET ESTIMATE> ADEQUATE; <PLT MORPHOLOGY> NORMAL PLT MORPH
[2019-03-01 08:30] VITALS: BP 154/94
[2019-03-01] MEDS: PANTOPRAZOLE 40 MG IV IVPush SCH ×2 (08:36→19:55)
[2019-03-01] MEDS: ENOXAPARIN 40 MG/0.4 ML SQ SCH (08:36)
[2019-03-01] MEDS: MEROPENEM 1 GM in SODIUM CHLORIDE 0.9% 100 ML IV SCH ×3 (08:37→23:40)
[2019-03-01] MEDS: CHOLECALCIFEROL 1,000 UNIT TABLET PO SCH (08:57)
[2019-03-01] MEDS: MULTIVITS,STRESS FORMULA 1 TABLET PO SCH (08:57)
[2019-03-01 12:06] VITALS: BP 137/91
[2019-03-01] MEDS ORDERED: MAGNESIUM SULFATE PMX 2GM/50ML 50 ML IV ONE (14:00)
[2019-03-01] MEDS: FILTER, DISP 1.2 MICRON FOR TPN/PVN IV PRN (16:38)
[2019-03-01] MEDS ORDERED: [UNRECOGNIZED DRUG - OTHER] IV SCH (17:00)
[2019-03-01] MEDS ORDERED: FAT EMUL IV SCH (17:00)
[2019-03-01] MEDS ORDERED: AMINO ACID 10% IV SCH (17:00)
[2019-03-01] MEDS ORDERED: DEXTROSE 70% IV SCH (17:00)
[2019-03-01] MEDS ORDERED: SMOF TPN IV SCH (17:00)
[2019-03-01] MEDS: TRAZODONE 50MG TABLET PO PRN (19:56)
[2019-03-01 20:19] VITALS: BP 136/78
[2019-03-02 00:15] VITALS: BP 130/75
[2019-03-02] MEDS: HYDROmorphone 1 MG/ML, 1ML VIAL IV PRN ×4 (04:22→21:16)
[2019-03-02 04:38] LABS: MEAN CORPUSCULAR HEMOGLOBIN 33.1 pg (27.5-34.5); MEAN CORPUSCULAR HGB CONC 33.8 g/dL (33.2-36.2); MEAN CORPUSCULAR VOLUME 98.1 fL (81-97); MEAN PLATELET VOLUME 6.9 fL (7.4-10.4); PLATELET COUNT 341 x10^3/uL (130-400); RED BLOOD COUNT 3.55 x10^6/uL (4.38-5.82); RED CELL DISTRIBUTION WIDTH 14.3 % (9.4-14.8)
[2019-03-02 04:42] LABS: ALBUMIN 1.4 g/dL (3.4-5.0); ANION GAP 6 mmol/L (5-15); CALCIUM 7.6 mg/dL (8.5-10.1); CHLORIDE 104 mmol/L (98-107); CREATININE 0.67 mg/dL (0.7-1.3)
[2019-03-02 05:07] LABS: MD YES
[2019-03-02 05:10] LABS: <PLATELET ESTIMATE> ADEQUATE; <PLT MORPHOLOGY> NORMAL PLT MORPH; ANISOCYTOSIS 1+; BAND#(MANUAL) 0.14 x10^3/uL; BANDS%(MANUAL) 1 % (0-7); EOS#(MANUAL) 0.43 x10^3/uL (0.0-0.4); EOS% (MANUAL) 3 % (1-7); LYMPH#(MANUAL) 1.15 x10^3/uL (1-3.4); LYMPHS% (MANUAL) 8 % (22-44); MONOS#(MANUAL) 0.72 x10^3/uL (0.3-2.7); MONOS% (MANUAL) 5 % (2-9); POLYCHROMASIA 1+; SEG#(MANUAL) 11.95 x10^3/uL (1.8-6.8); SEGS% (MANUAL) 83 % (42-75); TOXIC GRAN 1+
[2019-03-02] MEDS: INSULIN REGULAR MEDIUM DOSE QDAY SQ-INSULIN SCH (07:56)
[2019-03-02 08:00] VITALS: BP 135/84
[2019-03-02] MEDS: CHOLECALCIFEROL 1,000 UNIT TABLET PO SCH (08:16)
[2019-03-02] MEDS: MULTIVITS,STRESS FORMULA 1 TABLET PO SCH (08:16)
[2019-03-02] MEDS: PANTOPRAZOLE 40 MG IV IVPush SCH ×2 (08:23→21:16)
[2019-03-02] MEDS: ENOXAPARIN 40 MG/0.4 ML SQ SCH (08:23)
[2019-03-02] MEDS: MEROPENEM 1 GM in SODIUM CHLORIDE 0.9% 100 ML IV SCH ×2 (08:23→15:54)
[2019-03-02 14:59] VITALS: BP 145/89
[2019-03-02] MEDS ORDERED: AMINO ACID 10% IV SCH (17:00)
[2019-03-02] MEDS ORDERED: FAT EMUL IV SCH (17:00)
[2019-03-02] MEDS ORDERED: DEXTROSE 70% IV SCH (17:00)
[2019-03-02] MEDS ORDERED: [UNRECOGNIZED DRUG - OTHER] IV SCH (17:00)
[2019-03-02] MEDS ORDERED: SMOF TPN IV SCH (17:00)
[2019-03-02] MEDS: FILTER, DISP 1.2 MICRON FOR TPN/PVN IV PRN (18:14)
[2019-03-02 20:16] VITALS: BP 148/88
[2019-03-02] MEDS: TRAZODONE 50MG TABLET PO PRN (21:15)
[2019-03-02] MEDS: ACETAMINOPHEN 325 MG TABLET PO PRN (21:16)
[2019-03-03] MEDS: MEROPENEM 1 GM in SODIUM CHLORIDE 0.9% 100 ML IV SCH ×3 (00:10→16:47)
[2019-03-03 00:20] VITALS: BP 149/84
[2019-03-03] MEDS: HYDROmorphone 1 MG/ML, 1ML VIAL IV PRN ×5 (01:11→19:36)
[2019-03-03 04:55] LABS: ANION GAP 5 mmol/L (5-15); CALCIUM 7.5 mg/dL (8.5-10.1); CHLORIDE 102 mmol/L (98-107)
[2019-03-03 05:02] LABS: CREATININE 0.67 mg/dL (0.7-1.3)
[2019-03-03 08:01] VITALS: BP 137/78
[2019-03-03] MEDS: INSULIN REGULAR MEDIUM DOSE QDAY SQ-INSULIN SCH (09:00)
[2019-03-03] MEDS: MULTIVITS,STRESS FORMULA 1 TABLET PO SCH (09:07)
[2019-03-03] MEDS: PANTOPRAZOLE 40 MG IV IVPush SCH ×2 (09:07→21:39)
[2019-03-03] MEDS: ENOXAPARIN 40 MG/0.4 ML SQ SCH (09:07)
[2019-03-03] MEDS: CHOLECALCIFEROL 1,000 UNIT TABLET PO SCH (09:08)
[2019-03-03 13:02] VITALS: BP 134/85
[2019-03-03] MEDS ORDERED: SMOF TPN IV SCH (17:00)
[2019-03-03] MEDS ORDERED: DEXTROSE 70% IV SCH (17:00)
[2019-03-03] MEDS ORDERED: FAT EMUL IV SCH (17:00)
[2019-03-03] MEDS ORDERED: [UNRECOGNIZED DRUG - OTHER] IV SCH (17:00)
[2019-03-03] MEDS ORDERED: AMINO ACID 10% IV SCH (17:00)
[2019-03-03 20:01] VITALS: BP 130/64
[2019-03-03] MEDS: TRAZODONE 50MG TABLET PO PRN (21:52)
[2019-03-04] MEDS: MEROPENEM 1 GM in SODIUM CHLORIDE 0.9% 100 ML IV SCH ×3 (00:13→16:58)
[2019-03-04] MEDS: ACETAMINOPHEN 325 MG TABLET PO PRN ×3 (00:13→15:17)
[2019-03-04 01:59] VITALS: BP 101/63
[2019-03-04] MEDS: HYDROmorphone 1 MG/ML, 1ML VIAL IV PRN ×3 (02:56→20:43)
[2019-03-04 06:36] LABS: HCT (SEDRATE) 33.3 % (39.2-51.8); MEAN CORPUSCULAR HEMOGLOBIN 32.5 pg (27.5-34.5); MEAN CORPUSCULAR HGB CONC 32.9 g/dL (33.2-36.2); MEAN CORPUSCULAR VOLUME 98.7 fL (81-97); MEAN PLATELET VOLUME 7.3 fL (7.4-10.4); PLATELET COUNT 475 x10^3/uL (130-400); RED BLOOD COUNT 3.37 x10^6/uL (4.38-5.82); RED CELL DISTRIBUTION WIDTH 14.5 % (9.4-14.8)
[2019-03-04 06:50] LABS: ALBUMIN 1.1 g/dL (3.4-5.0); ANION GAP 7 mmol/L (5-15); CALCIUM 6.2 mg/dL (8.5-10.1); CHLORIDE 113 mmol/L (98-107)
[2019-03-04 06:58] LABS: BASOPHILS # (AUTO) 0.03 x10^3/uL (0-0.1); BASOPHILS % (AUTO) 0 % (0-1); EOSINOPHILS # (AUTO) 0.25 x10^3/uL (0-0.4); EOSINOPHILS % (AUTO) 2 % (1-7); LYMPHOCYTES % (AUTO) 12 % (22-44); MD SCAN; MONOCYTES # (AUTO) 0.65 x10^3/uL (0.2-0.8); MONOCYTES % (AUTO) 6 % (2-9); NEUTROPHILS # (AUTO) 8.32 x10^3/uL (1.8-6.8); NEUTROPHILS % (AUTO) 80 % (42-75)
[2019-03-04 06:59] LABS: ALANINE AMINOTRANSFERASE 24 U/L (12-78); ALKALINE PHOSPHATASE 154 U/L (45-117); BILIRUBIN,TOTAL 0.6 mg/dL (0.2-1.0); CREATININE 0.52 mg/dL (0.7-1.3); PREALBUMIN 14.4 mg/dL (20.0-40.0); TOTAL PROTEIN 4.5 g/dL (6.4-8.2)
[2019-03-04 08:21] VITALS: BP 126/76
[2019-03-04] MEDS: MULTIVITS,STRESS FORMULA 1 TABLET PO SCH (08:24)
[2019-03-04] MEDS: PANTOPRAZOLE 40 MG IV IVPush SCH ×2 (08:24→20:29)
[2019-03-04] MEDS: CHOLECALCIFEROL 1,000 UNIT TABLET PO SCH (08:24)
[2019-03-04] MEDS: ENOXAPARIN 40 MG/0.4 ML SQ SCH (08:26)
[2019-03-04] MEDS: INSULIN REGULAR MEDIUM DOSE QDAY SQ-INSULIN SCH (08:26)
[2019-03-04 15:09] VITALS: BP 131/75
[2019-03-04] MEDS: FILTER, DISP 1.2 MICRON FOR TPN/PVN IV PRN (16:58)
[2019-03-04] MEDS ORDERED: FAT EMUL IV SCH (17:00)
[2019-03-04] MEDS ORDERED: SMOF TPN IV SCH (17:00)
[2019-03-04] MEDS ORDERED: [UNRECOGNIZED DRUG - OTHER] IV SCH (17:00)
[2019-03-04] MEDS ORDERED: AMINO ACID 10% IV SCH (17:00)
[2019-03-04] MEDS ORDERED: DEXTROSE 70% IV SCH (17:00)
[2019-03-04 19:29] VITALS: BP 165/90
[2019-03-04] MEDS: TRAZODONE 50MG TABLET PO PRN (20:29)
[2019-03-05] MEDS: MEROPENEM 1 GM in SODIUM CHLORIDE 0.9% 100 ML IV SCH ×3 (00:18→16:49)
[2019-03-05 00:27] VITALS: BP 153/87
[2019-03-05] MEDS: ACETAMINOPHEN 325 MG TABLET PO PRN ×2 (03:34→15:21)
[2019-03-05 05:12] LABS: ANION GAP 7 mmol/L (5-15); CALCIUM 7.9 mg/dL (8.5-10.1); CHLORIDE 103 mmol/L (98-107)
[2019-03-05 05:13] LABS: CREATININE 0.69 mg/dL (0.7-1.3)
[2019-03-05] MEDS: ONDANSETRON 2MG/ML, 2ML IVPush PRN (05:47)
[2019-03-05 06:32] VITALS: BP 127/74
[2019-03-05] MEDS: INSULIN REGULAR MEDIUM DOSE QDAY SQ-INSULIN SCH (07:35)
[2019-03-05] MEDS: PANTOPRAZOLE 40 MG IV IVPush SCH ×2 (09:00→09:06)
[2019-03-05] MEDS: MULTIVITS,STRESS FORMULA 1 TABLET PO SCH (09:07)
[2019-03-05] MEDS: CHOLECALCIFEROL 1,000 UNIT TABLET PO SCH (09:07)
[2019-03-05] MEDS: ENOXAPARIN 40 MG/0.4 ML SQ SCH (09:07)
[2019-03-05 12:29] VITALS: BP 123/73
[2019-03-05] MEDS: FILTER, DISP 1.2 MICRON FOR TPN/PVN IV PRN (16:49)
[2019-03-05] MEDS ORDERED: SMOF TPN IV SCH (17:00)
[2019-03-05] MEDS ORDERED: DEXTROSE 70% IV SCH (17:00)
[2019-03-05] MEDS ORDERED: [UNRECOGNIZED DRUG - OTHER] IV SCH (17:00)
[2019-03-05] MEDS ORDERED: FAT EMUL IV SCH (17:00)
[2019-03-05] MEDS ORDERED: AMINO ACID 10% IV SCH (17:00)
[2019-03-05 19:09] VITALS: BP 125/76
[2019-03-05] MEDS: TRAZODONE 50MG TABLET PO PRN (19:36)
[2019-03-05] MEDS: LORazepam 2 MG/ML, 1ML IVPush PRN (21:15)
[2019-03-06] MEDS: MEROPENEM 1 GM in SODIUM CHLORIDE 0.9% 100 ML IV SCH ×3 (01:02→17:03)
[2019-03-06 06:50] LABS: ANION GAP 5 mmol/L (5-15); CALCIUM 8.2 mg/dL (8.5-10.1); CHLORIDE 103 mmol/L (98-107); CREATININE 0.69 mg/dL (0.7-1.3)
[2019-03-06 08:41] VITALS: BP 143/80
[2019-03-06] MEDS: CHOLECALCIFEROL 1,000 UNIT TABLET PO SCH (09:20)
[2019-03-06] MEDS: PANTOPRAZOLE 40 MG IV IVPush SCH (09:20)
[2019-03-06] MEDS: INSULIN REGULAR MEDIUM DOSE QDAY SQ-INSULIN SCH (09:20)
[2019-03-06] MEDS: MULTIVITS,STRESS FORMULA 1 TABLET PO SCH (09:20)
[2019-03-06] MEDS: ENOXAPARIN 40 MG/0.4 ML SQ SCH (09:21)
[2019-03-06 12:06] LABS: BASOPHILS # (AUTO) 0.05 x10^3/uL (0-0.1); BASOPHILS % (AUTO) 1 % (0-1); EOSINOPHILS # (AUTO) 0.21 x10^3/uL (0-0.4); EOSINOPHILS % (AUTO) 3 % (1-7); LYMPHOCYTES # (AUTO) 1.05 x10^3/uL (1-3.4); LYMPHOCYTES % (AUTO) 15 % (22-44); MD NO; MEAN CORPUSCULAR HEMOGLOBIN 32.2 pg (27.5-34.5); MEAN CORPUSCULAR HGB CONC 32.6 g/dL (33.2-36.2); MEAN CORPUSCULAR VOLUME 98.6 fL (81-97); MEAN PLATELET VOLUME 7.1 fL (7.4-10.4); MONOCYTES # (AUTO) 0.58 x10^3/uL (0.2-0.8); MONOCYTES % (AUTO) 8 % (2-9); NEUTROPHILS # (AUTO) 5.16 x10^3/uL (1.8-6.8); NEUTROPHILS % (AUTO) 73 % (42-75); PLATELET COUNT 538 x10^3/uL (130-400); RED BLOOD COUNT 3.42 x10^6/uL (4.38-5.82); RED CELL DISTRIBUTION WIDTH 14.5 % (9.4-14.8)
[2019-03-06 13:48] VITALS: BP 110/73
[2019-03-06] MEDS: OXYcodone IR 5MG TABLET PO PRN ×2 (13:55→20:08)
[2019-03-06] MEDS ORDERED: [UNRECOGNIZED DRUG - OTHER] IV SCH (17:00)
[2019-03-06] MEDS ORDERED: DEXTROSE 70% IV SCH (17:00)
[2019-03-06] MEDS ORDERED: SMOF TPN IV SCH (17:00)
[2019-03-06] MEDS ORDERED: AMINO ACID 10% IV SCH (17:00)
[2019-03-06] MEDS ORDERED: FAT EMUL IV SCH (17:00)
[2019-03-06] MEDS ORDERED: FILTER, DISP 1.2 MICRON FOR TPN/PVN IV PRN (17:00)
[2019-03-06 18:47] VITALS: BP 118/66
[2019-03-06] MEDS: TRAZODONE 50MG TABLET PO PRN (20:07)
[2019-03-07] MEDS: MEROPENEM 1 GM in SODIUM CHLORIDE 0.9% 100 ML IV SCH ×3 (01:11→18:15)
[2019-03-07 01:13] VITALS: BP 114/78
[2019-03-07 06:05] LABS: BASOPHILS # (AUTO) 0.05 x10^3/uL (0-0.1); BASOPHILS % (AUTO) 1 % (0-1); EOSINOPHILS # (AUTO) 0.27 x10^3/uL (0-0.4); EOSINOPHILS % (AUTO) 4 % (1-7); LYMPHOCYTES # (AUTO) 1.28 x10^3/uL (1-3.4); LYMPHOCYTES % (AUTO) 19 % (22-44); MD NO; MEAN CORPUSCULAR HEMOGLOBIN 32.5 pg (27.5-34.5); MEAN CORPUSCULAR HGB CONC 33.2 g/dL (33.2-36.2); MEAN CORPUSCULAR VOLUME 97.9 fL (81-97); MEAN PLATELET VOLUME 7.2 fL (7.4-10.4); MONOCYTES # (AUTO) 0.59 x10^3/uL (0.2-0.8); MONOCYTES % (AUTO) 9 % (2-9); NEUTROPHILS # (AUTO) 4.45 x10^3/uL (1.8-6.8); NEUTROPHILS % (AUTO) 67 % (42-75); PLATELET COUNT 531 x10^3/uL (130-400); RED BLOOD COUNT 3.29 x10^6/uL (4.38-5.82); RED CELL DISTRIBUTION WIDTH 14.3 % (9.4-14.8)
[2019-03-07 06:10] LABS: ANION GAP 5 mmol/L (5-15); CALCIUM 7.9 mg/dL (8.5-10.1); CHLORIDE 104 mmol/L (98-107); CREATININE 0.74 mg/dL (0.7-1.3)
[2019-03-07 07:20] VITALS: BP 123/76
[2019-03-07] MEDS: INSULIN REGULAR MEDIUM DOSE QDAY SQ-INSULIN SCH (09:09)
[2019-03-07] MEDS: ENOXAPARIN 40 MG/0.4 ML SQ SCH (09:29)
[2019-03-07] MEDS: CHOLECALCIFEROL 1,000 UNIT TABLET PO SCH (09:29)
[2019-03-07] MEDS: PANTOPRAZOLE 40 MG IV IVPush SCH (09:29)
[2019-03-07] MEDS: MULTIVITS,STRESS FORMULA 1 TABLET PO SCH (09:29)
[2019-03-07 12:50] VITALS: BP 116/66
[2019-03-07] MEDS ORDERED: OMNIPAQUE 350 MG/ML, 100ML BOTTLE ONE (16:20)
[2019-03-07] MEDS ORDERED: DEXTROSE 50%, 50ML SYRINGE IVPush PRN (17:30)
[2019-03-07] MEDS ORDERED: TPN PER PHARMACY MC PRN (17:30)
[2019-03-07] MEDS ORDERED: DEXTROSE 10% 500 ML IV PRN (17:30)
[2019-03-07 19:43] VITALS: BP 125/75
[2019-03-07] MEDS: METOCLOPRAMIDE 10MG TABLET PO SCH (21:33)
[2019-03-07] MEDS: OXYcodone IR 5MG TABLET PO PRN (21:33)
[2019-03-07] MEDS: TRAZODONE 50MG TABLET PO PRN ×2 (21:33→22:45)
[2019-03-08] MEDS: MEROPENEM 1 GM in SODIUM CHLORIDE 0.9% 100 ML IV SCH ×4 (01:56→23:58)
[2019-03-08 02:00] VITALS: BP 102/58
[2019-03-08 07:19] VITALS: BP 120/73
[2019-03-08] MEDS: ENOXAPARIN 40 MG/0.4 ML SQ SCH (08:01)
[2019-03-08] MEDS: PANTOPROZOLE 40MG TABLET PO SCH (08:01)
[2019-03-08] MEDS: METOCLOPRAMIDE 10MG TABLET PO SCH ×4 (08:02→19:43)
[2019-03-08] MEDS: MULTIVITS,STRESS FORMULA 1 TABLET PO SCH (08:02)
[2019-03-08] MEDS: CHOLECALCIFEROL 1,000 UNIT TABLET PO SCH (08:02)
[2019-03-08] MEDS ORDERED: INSULIN REGULAR MEDIUM DOSE QDAY SQ-INSULIN SCH (09:00)
[2019-03-08 12:33] LABS: BASOPHILS # (AUTO) 0.07 x10^3/uL (0-0.1); BASOPHILS % (AUTO) 1 % (0-1); EOSINOPHILS # (AUTO) 0.39 x10^3/uL (0-0.4); EOSINOPHILS % (AUTO) 5 % (1-7); LYMPHOCYTES # (AUTO) 1.52 x10^3/uL (1-3.4); LYMPHOCYTES % (AUTO) 20 % (22-44); MD NO; MEAN CORPUSCULAR HEMOGLOBIN 32.5 pg (27.5-34.5); MEAN CORPUSCULAR HGB CONC 33.3 g/dL (33.2-36.2); MEAN CORPUSCULAR VOLUME 97.8 fL (81-97); MEAN PLATELET VOLUME 7.1 fL (7.4-10.4); MONOCYTES % (AUTO) 9 % (2-9); NEUTROPHILS # (AUTO) 4.94 x10^3/uL (1.8-6.8); NEUTROPHILS % (AUTO) 65 % (42-75); PLATELET COUNT 587 x10^3/uL (130-400); RED BLOOD COUNT 3.34 x10^6/uL (4.38-5.82); RED CELL DISTRIBUTION WIDTH 14.4 % (9.4-14.8)
[2019-03-08 12:39] LABS: ANION GAP 5 mmol/L (5-15); CHLORIDE 102 mmol/L (98-107); CREATININE 0.81 mg/dL (0.7-1.3)
[2019-03-08] MEDS ORDERED: TPN PER PHARMACY MC PRN (14:30)
[2019-03-08] MEDS ORDERED: DEXTROSE 50%, 50ML SYRINGE IVPush PRN (14:30)
[2019-03-08] MEDS ORDERED: DEXTROSE 10% 500 ML IV PRN (14:30)
[2019-03-08 14:52] VITALS: BP 117/73
[2019-03-08] MEDS: ACETAMINOPHEN 325 MG TABLET PO PRN (15:34)
[2019-03-08] MEDS ORDERED: FAT EMUL IV SCH (17:00)
[2019-03-08] MEDS ORDERED: DEXTROSE 70% IV SCH (17:00)
[2019-03-08] MEDS ORDERED: AMINO ACID 10% IV SCH (17:00)
[2019-03-08] MEDS ORDERED: [UNRECOGNIZED DRUG - OTHER] IV SCH (17:00)
[2019-03-08] MEDS ORDERED: SMOF TPN IV SCH (17:00)
[2019-03-08] MEDS: FILTER, DISP 1.2 MICRON FOR TPN/PVN IV PRN (17:24)
[2019-03-08] MEDS: OXYcodone IR 5MG TABLET PO PRN (19:42)
[2019-03-08 20:00] VITALS: BP 125/74
[2019-03-08] MEDS: TRAZODONE 50MG TABLET PO PRN (20:10)
[2019-03-09] MEDS: PANTOPROZOLE 40MG TABLET PO SCH (05:38)
[2019-03-09 05:39] VITALS: BP 116/71
[2019-03-09 07:35] VITALS: BP 122/74
[2019-03-09] MEDS: CHOLECALCIFEROL 1,000 UNIT TABLET PO SCH (08:16)
[2019-03-09] MEDS: MEROPENEM 1 GM in SODIUM CHLORIDE 0.9% 100 ML IV SCH ×2 (08:16→16:05)
[2019-03-09] MEDS: METOCLOPRAMIDE 10MG TABLET PO SCH ×4 (08:16→20:34)
[2019-03-09] MEDS: MULTIVITS,STRESS FORMULA 1 TABLET PO SCH (08:16)
[2019-03-09] MEDS: ENOXAPARIN 40 MG/0.4 ML SQ SCH (08:17)
[2019-03-09] MEDS: INSULIN REGULAR MEDIUM DOSE QDAY SQ-INSULIN SCH (08:22)
[2019-03-09 12:55] VITALS: BP 108/63
[2019-03-09] MEDS ORDERED: DEXTROSE 70% IV SCH (17:00)
[2019-03-09] MEDS ORDERED: SMOF TPN IV SCH (17:00)
[2019-03-09] MEDS ORDERED: AMINO ACID 10% IV SCH (17:00)
[2019-03-09] MEDS ORDERED: FAT EMUL IV SCH (17:00)
[2019-03-09] MEDS ORDERED: [UNRECOGNIZED DRUG - OTHER] IV SCH (17:00)
[2019-03-09] MEDS: FILTER, DISP 1.2 MICRON FOR TPN/PVN IV PRN (17:19)
[2019-03-09] MEDS: TRAZODONE 50MG TABLET PO PRN (21:12)
[2019-03-09 21:30] VITALS: BP 157/81
[2019-03-10] MEDS: MEROPENEM 1 GM in SODIUM CHLORIDE 0.9% 100 ML IV SCH ×3 (00:06→16:09)
[2019-03-10 02:01] VITALS: BP 122/74
[2019-03-10] MEDS: PANTOPROZOLE 40MG TABLET PO SCH (06:10)
[2019-03-10 06:35] LABS: BASOPHILS # (AUTO) 0.04 x10^3/uL (0-0.1); BASOPHILS % (AUTO) 1 % (0-1); EOSINOPHILS # (AUTO) 0.52 x10^3/uL (0-0.4); EOSINOPHILS % (AUTO) 7 % (1-7); LYMPHOCYTES # (AUTO) 1.84 x10^3/uL (1-3.4); LYMPHOCYTES % (AUTO) 23 % (22-44); MD NO; MEAN CORPUSCULAR HEMOGLOBIN 31.8 pg (27.5-34.5); MEAN CORPUSCULAR VOLUME 96.5 fL (81-97); MEAN PLATELET VOLUME 6.6 fL (7.4-10.4); MONOCYTES # (AUTO) 0.76 x10^3/uL (0.2-0.8); MONOCYTES % (AUTO) 10 % (2-9); NEUTROPHILS # (AUTO) 4.79 x10^3/uL (1.8-6.8); NEUTROPHILS % (AUTO) 60 % (42-75); PLATELET COUNT 640 x10^3/uL (130-400); RED BLOOD COUNT 3.57 x10^6/uL (4.38-5.82); RED CELL DISTRIBUTION WIDTH 14.4 % (9.4-14.8)
[2019-03-10 08:07] LABS: ALBUMIN 1.8 g/dL (3.4-5.0); ANION GAP 6 mmol/L (5-15); CALCIUM 8.2 mg/dL (8.5-10.1); CHLORIDE 108 mmol/L (98-107); CREATININE 0.71 mg/dL (0.7-1.3)
[2019-03-10] MEDS: CHOLECALCIFEROL 1,000 UNIT TABLET PO SCH (08:12)
[2019-03-10] MEDS: INSULIN REGULAR MEDIUM DOSE QDAY SQ-INSULIN SCH (08:12)
[2019-03-10] MEDS: MULTIVITS,STRESS FORMULA 1 TABLET PO SCH (08:12)
[2019-03-10] MEDS: METOCLOPRAMIDE 10MG TABLET PO SCH ×4 (08:13→20:51)
[2019-03-10] MEDS: ENOXAPARIN 40 MG/0.4 ML SQ SCH (08:13)
[2019-03-10 08:23] VITALS: BP 115/72
[2019-03-10 12:25] LABS: HCT (SEDRATE) 33.9 % (39.2-51.8)
[2019-03-10 13:02] VITALS: BP 120/76
[2019-03-10 18:55] VITALS: BP 127/75
[2019-03-10] MEDS: TRAZODONE 50MG TABLET PO PRN (20:50)
[2019-03-11] MEDS: MEROPENEM 1 GM in SODIUM CHLORIDE 0.9% 100 ML IV SCH ×3 (00:12→16:00)
[2019-03-11 00:16] VITALS: BP 128/75
[2019-03-11] MEDS: ACETAMINOPHEN 325 MG TABLET PO PRN (05:55)
[2019-03-11] MEDS: PANTOPROZOLE 40MG TABLET PO SCH (05:55)
[2019-03-11 07:10] VITALS: BP 124/67
[2019-03-11] MEDS: MULTIVITS,STRESS FORMULA 1 TABLET PO SCH (08:04)
[2019-03-11] MEDS: METOCLOPRAMIDE 10MG TABLET PO SCH ×4 (08:04→20:48)
[2019-03-11] MEDS: CHOLECALCIFEROL 1,000 UNIT TABLET PO SCH (08:05)
[2019-03-11] MEDS: ENOXAPARIN 40 MG/0.4 ML SQ SCH (08:05)
[2019-03-11 12:33] VITALS: BP 111/67
[2019-03-11] MEDS: TRAZODONE 50MG TABLET PO PRN (20:48)
[2019-03-12 01:28] VITALS: BP 112/70
[2019-03-12] MEDS: PANTOPROZOLE 40MG TABLET PO SCH (06:30)
[2019-03-12 07:24] VITALS: BP 113/71
[2019-03-12] MEDS: ENOXAPARIN 40 MG/0.4 ML SQ SCH (08:33)
[2019-03-12] MEDS: MULTIVITS,STRESS FORMULA 1 TABLET PO SCH (08:33)
[2019-03-12] MEDS: METOCLOPRAMIDE 10MG TABLET PO SCH ×4 (08:33→21:17)
[2019-03-12] MEDS: CHOLECALCIFEROL 1,000 UNIT TABLET PO SCH (08:33)
[2019-03-12] MEDS: MEROPENEM 1 GM in SODIUM CHLORIDE 0.9% 100 ML IV SCH ×3 (08:33→16:42)
[2019-03-12 12:34] VITALS: BP 115/68
[2019-03-12 19:53] VITALS: BP 118/72
[2019-03-12] MEDS: TRAZODONE 50MG TABLET PO PRN (21:17)
[2019-03-13] MEDS: MEROPENEM 1 GM in SODIUM CHLORIDE 0.9% 100 ML IV SCH ×2 (00:15→09:16)
[2019-03-13 02:08] VITALS: BP 117/69
[2019-03-13] MEDS: PANTOPROZOLE 40MG TABLET PO SCH (05:40)
[2019-03-13] MEDS: METOCLOPRAMIDE 10MG TABLET PO SCH ×4 (07:00→20:26)
[2019-03-13 08:00] VITALS: BP 113/70
[2019-03-13] MEDS: ENOXAPARIN 40 MG/0.4 ML SQ SCH (09:00)
[2019-03-13] MEDS: MULTIVITS,STRESS FORMULA 1 TABLET PO SCH (09:00)
[2019-03-13] MEDS: CHOLECALCIFEROL 1,000 UNIT TABLET PO SCH (09:00)
[2019-03-13] MEDS: AMOXICILLIN/CLAV 875-125MG TABLET PO SCH ×2 (12:00→20:26)
[2019-03-13] MEDS: ACETAMINOPHEN 325 MG TABLET PO PRN (15:50)
[2019-03-13 17:13] VITALS: BP 92/57
[2019-03-13] MEDS: TRAZODONE 50MG TABLET PO PRN (20:27)
[2019-03-13 20:28] VITALS: BP 116/74
[2019-03-14 01:30] VITALS: BP 111/74
[2019-03-14] MEDS: PANTOPROZOLE 40MG TABLET PO SCH (05:25)
[2019-03-14] MEDS: AMOXICILLIN/CLAV 875-125MG TABLET PO SCH ×2 (05:25→11:29)
[2019-03-14 06:36] LABS: ALBUMIN 2.2 g/dL (3.4-5.0); ANION GAP 6 mmol/L (5-15); CALCIUM 8.7 mg/dL (8.5-10.1); CHLORIDE 106 mmol/L (98-107)
[2019-03-14 06:37] LABS: BASOPHILS # (AUTO) 0.08 x10^3/uL (0-0.1); BASOPHILS % (AUTO) 1 % (0-1); EOSINOPHILS # (AUTO) 0.51 x10^3/uL (0-0.4); EOSINOPHILS % (AUTO) 7 % (1-7); LYMPHOCYTES # (AUTO) 2.48 x10^3/uL (1-3.4); LYMPHOCYTES % (AUTO) 33 % (22-44); MD NO; MEAN CORPUSCULAR HEMOGLOBIN 32.2 pg (27.5-34.5); MEAN CORPUSCULAR HGB CONC 32.7 g/dL (33.2-36.2); MEAN CORPUSCULAR VOLUME 98.5 fL (81-97); MEAN PLATELET VOLUME 6.9 fL (7.4-10.4); MONOCYTES # (AUTO) 0.67 x10^3/uL (0.2-0.8); MONOCYTES % (AUTO) 9 % (2-9); NEUTROPHILS # (AUTO) 3.74 x10^3/uL (1.8-6.8); NEUTROPHILS % (AUTO) 50 % (42-75); PLATELET COUNT 565 x10^3/uL (130-400); RED BLOOD COUNT 3.52 x10^6/uL (4.38-5.82); RED CELL DISTRIBUTION WIDTH 15.1 % (9.4-14.8)
[2019-03-14 06:38] LABS: CREATININE 0.87 mg/dL (0.7-1.3)
[2019-03-14] MEDS: METOCLOPRAMIDE 10MG TABLET PO SCH ×2 (07:00→11:00)
[2019-03-14] MEDS: ENOXAPARIN 40 MG/0.4 ML SQ SCH (07:58)
[2019-03-14] MEDS: CHOLECALCIFEROL 1,000 UNIT TABLET PO SCH (07:58)
[2019-03-14] MEDS: MULTIVITS,STRESS FORMULA 1 TABLET PO SCH (07:58)
[2019-03-14] MEDS ORDERED: AMOX1TAB12 PO (10:38)
[2019-03-14] MEDS ORDERED: CHOL10003 PO (10:38)
[2019-03-14] MEDS ORDERED: MULT1TAB76 PO (10:38)
== END 2019-03-14 13:44 | disposition home health service (06) | DRG 853 ==
LOC: ED 12:12 → EDIP 12:14 → 3N 13:49 → 4EST 02-19 07:42 → CCU 02-19 20:16 → 4EST 02-22 11:53 → 4WST 02-28 17:38 → DCLOUNGE 03-14 13:32
PROVIDERS: ADMIT Family Medicine; ATTEND Family Medicine
PROC: 0DBB8ZX Excision of Ileum, Via Natural or Artificial Opening Endoscopic, Diagnostic (ICD-10-PCS; 2019-02-21)
PROC: 0DBN8ZX Excision of Sigmoid Colon, Via Natural or Artificial Opening Endoscopic, Diagnostic (ICD-10-PCS; 2019-02-21)
PROC: 0DBF8ZX Excision of Right Large Intestine, Via Natural or Artificial Opening Endoscopic, Diagnostic (ICD-10-PCS; 2019-02-21)
PROC: 0DBG8ZX Excision of Left Large Intestine, Via Natural or Artificial Opening Endoscopic, Diagnostic (ICD-10-PCS; 2019-02-21)
PROC: 02HV33Z Insertion of Infusion Device into Superior Vena Cava, Percutaneous Approach (ICD-10-PCS; 2019-02-25)
PROC: B5181ZA Fluoroscopy of Superior Vena Cava using Low Osmolar Contrast, Guidance (ICD-10-PCS; 2019-02-25)
PROC: B548ZZA Ultrasonography of Superior Vena Cava, Guidance (ICD-10-PCS; 2019-02-25)
PROC: 0DTN0ZZ Resection of Sigmoid Colon, Open Approach (ICD-10-PCS; 2019-02-26)
PROC: 0D1M0Z4 Bypass Descending Colon to Cutaneous, Open Approach (ICD-10-PCS; 2019-02-26)
PROC: 0DBU0ZZ Excision of Omentum, Open Approach (ICD-10-PCS; principal; 2019-02-26 16:30)
DX: A41.9 Sepsis, unspecified organism (principal); N17.0 Acute kidney failure with tubular necrosis; E43 Unspecified severe protein-calorie malnutrition; K65.1 Peritoneal abscess; A09 Infectious gastroenteritis and colitis, unspecified; E46 Unspecified protein-calorie malnutrition; E87.1 Hypo-osmolality and hyponatremia; E87.2 Acidosis; I31.3 Pericardial effusion (noninflammatory); K50.012 Crohn's disease of small intestine with intestinal obstruction; K56.7 Ileus, unspecified; K57.20 Diverticulitis of large intestine with perforation and abscess without bleeding; R18.8 Other ascites; N39.0 Urinary tract infection, site not specified; Z68.27 Body mass index [BMI] 27.0-27.9, adult; D47.3 Essential (hemorrhagic) thrombocythemia; D53.9 Nutritional anemia, unspecified; D63.8 Anemia in other chronic diseases classified elsewhere; E86.0 Dehydration; E87.6 Hypokalemia; F19.90 Other psychoactive substance use, unspecified, uncomplicated; F41.9 Anxiety disorder, unspecified; I48.0 Paroxysmal atrial fibrillation; K80.20 Calculus of gallbladder without cholecystitis without obstruction; M47.816 Spondylosis without myelopathy or radiculopathy, lumbar region; Z20.1 Contact with and (suspected) exposure to tuberculosis; Z23 Encounter for immunization; Z87.891 Personal history of nicotine dependence
CPT/HCPCS: 36415; 36573; 36600; 71045; 71275; 74018; 74177; 76700; 80048; 80053; 80069; 80202; 81001; 81479; 82040; 82330; 82803; 82962; 83605; 83631; 83690; 83735; 83993; 84100; 84134; 84478; 84484; 85025; 85651; 86140; 86480; 86705; 86706; 86708; 87040; 87046; 87081; 87086; 87324; 87328; 87329; 87340; 87389; 87427; 88304; 88305; 88307; 89055; 93005; 93306; 96361; 96365; G0378; J0610; J0690; J0696; J1100; J1170; J1650; J1815; J1885; J2185; J2250; J2405; J2543; J2704; J2710; J3010; J3370; J3475; J3480; P9045; Q0162; Q9967; C1751; C1765; C9113; J0330; J2060; J2370; J2765; J3420; J7030; J7040; J7050; J7120

== ENCOUNTER → 2019-09-04 | Outpatient (CLI) | payer MEDICARE, MEDICAID ==
[~2019-09-04] MED LIST: AMOX1TAB12 PO; APIX5TAB PO; CHOL10003 PO; MELA10TA3 PO; METO50TA82 PO; MULT1TAB76 PO; antihistamine PO
[2019-09-04 14:47] LABS: BASOPHILS # (AUTO) 0.05 x10^3/uL (0-0.1); BASOPHILS % (AUTO) 1 % (0-1); EOSINOPHILS # (AUTO) 0.12 x10^3/uL (0-0.4); EOSINOPHILS % (AUTO) 1 % (1-7); LYMPHOCYTES # (AUTO) 2.55 x10^3/uL (1-3.4); LYMPHOCYTES % (AUTO) 28 % (22-44); MD NO; MEAN CORPUSCULAR HEMOGLOBIN 32.3 pg (27.5-34.5); MEAN CORPUSCULAR HGB CONC 33.5 g/dL (33.2-36.2); MEAN CORPUSCULAR VOLUME 96.6 fL (81-97); MEAN PLATELET VOLUME 7.6 fL (7.4-10.4); MONOCYTES # (AUTO) 0.89 x10^3/uL (0.2-0.8); MONOCYTES % (AUTO) 10 % (2-9); NEUTROPHILS # (AUTO) 5.48 x10^3/uL (1.8-6.8); NEUTROPHILS % (AUTO) 60 % (42-75); PLATELET COUNT 289 x10^3/uL (130-400); RED BLOOD COUNT 5.26 x10^6/uL (4.38-5.82); RED CELL DISTRIBUTION WIDTH 15.9 % (9.4-14.8)
[2019-09-04 14:55] LABS: ALANINE AMINOTRANSFERASE 73 U/L (12-78); ALBUMIN 3.9 g/dL (3.4-5.0); ANION GAP 4 mmol/L (5-15); CALCIUM 9.2 mg/dL (8.5-10.1); CHLORIDE 110 mmol/L (98-107)
[2019-09-04 14:57] LABS: ALKALINE PHOSPHATASE 104 U/L (45-117); BILIRUBIN,TOTAL 1.7 mg/dL (0.2-1.0); TOTAL PROTEIN 7.9 g/dL (6.4-8.2)
== END | disposition home or self-care (01) ==
LOC: STAR 13:41
PROVIDERS: ATTEND Surgery
DX: Z01.818 Encounter for other preprocedural examination (principal); I48.91 Unspecified atrial fibrillation
CPT/HCPCS: 36415; 80053; 85025; 93005

== ENCOUNTER 2019-09-12 05:55 | Inpatient (IN) | payer MEDICARE, MEDICAID ==
[~2019-09-12] VITALS: Ht 172.7 cm; Wt 71.0 kg
[2019-09-12] MEDS ORDERED: BUPIVACAINE/PF 0.5% ONE ×2 (06:37→07:13)
[2019-09-12] MEDS ORDERED: INDOCYANINE GREEN 25 MG VIAL ONE (06:37)
[2019-09-12] MEDS ORDERED: LACTATED RINGERS 1,000 ML IV SCH (06:43)
[2019-09-12] MEDS ORDERED: MIDAZOLAM 1 MG/ML, 2ML ONE (06:53)
[2019-09-12] MEDS ORDERED: FENTANYL PF 100 MCG/2ML ONE ×2 (06:54→12:21)
[2019-09-12] MEDS ORDERED: ONDANSETRON 2MG/ML, 2ML ONE (06:54)
[2019-09-12] MEDS ORDERED: GLYCOPYRROLATE 0.2MG/1ML, 5ML ONE (06:54)
[2019-09-12] MEDS ORDERED: SUCCINYLCHOLINE 20 MG/ML, 10ML ONE (06:54)
[2019-09-12] MEDS ORDERED: CEFAZOLIN 1,000 MG ONE (06:54)
[2019-09-12] MEDS ORDERED: PROPOFOL 10 MG/ML, 20ML ONE (06:54)
[2019-09-12] MEDS ORDERED: NEOSTIGMINE 1 MG/ML, 10ML ONE (06:54)
[2019-09-12] MEDS ORDERED: DEXAMETHASONE 4 MG/ML, 1ML ONE (06:54)
[2019-09-12] MEDS ORDERED: ROCURONIUM 10MG/ML,5ML ONE (06:54)
[2019-09-12] MEDS ORDERED: CHLORHEXIDINE 15 ML UDC MM ONE (07:00)
[2019-09-12] MEDS ORDERED: EPINEPHRINE 1 MG/ML, 1ML ONE (07:13)
[2019-09-12] MEDS ORDERED: DEXMEDETOMIDINE 200 MCG/2 ML ONE (07:17)
[2019-09-12] MEDS ORDERED: SCOPOLAMINE 1MG PATCH TD ONE ×2 (07:25→07:30)
[2019-09-12] MEDS ORDERED: ACETAMINOPHEN 500 MG TABLET PO ONE (07:30)
[2019-09-12] MEDS ORDERED: GABAPENTIN 300 MG CAPSULE PO ONE (07:30)
[2019-09-12] MEDS ORDERED: SUGAMMADEX 200 MG/2 ML IVPush ONE (07:40)
[2019-09-12] MEDS ORDERED: VASOPRESSIN 20 UNIT/ML, 1ML ONE (07:40)
[2019-09-12] MEDS ORDERED: PHENYLEPHRINE 10 MG/ML ONE (07:40)
[2019-09-12] MEDS ORDERED: METRONIDAZOLE PMX 500MG/100ML 100 ML ONE (08:09)
[2019-09-12] MEDS ORDERED: OXYcodone 5 MG/5 ML ORAL.SOL UDC PO PRN (09:00)
[2019-09-12] MEDS ORDERED: PROMETHAZINE 25 MG/ML, 1ML IVPush PRN (09:00)
[2019-09-12] MEDS ORDERED: MEPERIDINE/PF 25MG/0.5ML IVPush PRN (09:00)
[2019-09-12] MEDS ORDERED: HYDROmorphone 1 MG/ML, 1ML INJ IVPush PRN (09:00)
[2019-09-12] MEDS ORDERED: FENTANYL PF 100 MCG/2ML IV PRN (09:00)
[2019-09-12] MEDS ORDERED: OXYcodone 5 MG/5 ML ORAL.SOL UDC ONE (12:21)
[2019-09-12] MEDS ORDERED: ALBUMIN HUMAN 25% 0 ML ONE (12:56)
[2019-09-12] MEDS ORDERED: ALBUMIN HUMAN 5% 500 ML ONE (12:57)
[2019-09-12] MEDS ORDERED: ALBUMIN HUMAN 5% 500 ML IV STA (13:14)
[2019-09-12] MEDS ORDERED: ALBUMIN HUMAN 5% 500 ML IV ONE (13:30)
[2019-09-12 15:34] LABS: BASOPHILS # (AUTO) 0.01 x10^3/uL (0-0.1); BASOPHILS % (AUTO) 0 % (0-1); EOSINOPHILS # (AUTO) 0.04 x10^3/uL (0-0.4); EOSINOPHILS % (AUTO) 0 % (1-7); LYMPHOCYTES % (AUTO) 10 % (22-44); MD NO; MEAN CORPUSCULAR HEMOGLOBIN 32.7 pg (27.5-34.5); MEAN CORPUSCULAR HGB CONC 33.5 g/dL (33.2-36.2); MEAN CORPUSCULAR VOLUME 97.7 fL (81-97); MEAN PLATELET VOLUME 7.8 fL (7.4-10.4); MONOCYTES # (AUTO) 0.43 x10^3/uL (0.2-0.8); MONOCYTES % (AUTO) 4 % (2-9); NEUTROPHILS # (AUTO) 9.81 x10^3/uL (1.8-6.8); NEUTROPHILS % (AUTO) 86 % (42-75); PLATELET COUNT 220 x10^3/uL (130-400); RED BLOOD COUNT 4.67 x10^6/uL (4.38-5.82); RED CELL DISTRIBUTION WIDTH 16.2 % (9.4-14.8)
[2019-09-12] MEDS: ACETAMINOPHEN 500 MG TABLET PO SCH (17:57)
[2019-09-12] MEDS: METOPROLOL TARTRATE 50 MG TAB PO SCH (17:58)
[2019-09-12] MEDS ORDERED: ONDANSETRON 2MG/ML, 2ML IV PRN (18:00)
[2019-09-12] MEDS ORDERED: DIPHENHYDRAMINE 50 MG/ML, 1ML IVPush PRN (18:00)
[2019-09-12] MEDS: D5%-0.45NACL+KCL 20MEQ 1,000 ML IV SCH (18:55)
[2019-09-12 20:12] VITALS: BP 89/60
[2019-09-12] MEDS: MELATONIN 5 MG TABLET PO SCH (22:07)
[2019-09-12] MEDS: GABAPENTIN 300 MG CAPSULE PO SCH (22:08)
[2019-09-13] VITALS (8 sets, daily range): BP systolic 98–114; BP diastolic 44–75
[2019-09-13] MEDS: ACETAMINOPHEN 500 MG TABLET PO SCH ×5 (00:24→18:37)
[2019-09-13] MEDS: OXYcodone IR 5MG TABLET PO PRN ×4 (00:25→21:02)
[2019-09-13] MEDS: D5%-0.45NACL+KCL 20MEQ 1,000 ML IV SCH ×2 (04:00→14:00)
[2019-09-13 04:53] LABS: MEAN CORPUSCULAR HEMOGLOBIN 32.5 pg (27.5-34.5); MEAN CORPUSCULAR HGB CONC 33.5 g/dL (33.2-36.2); MEAN CORPUSCULAR VOLUME 97.2 fL (81-97); MEAN PLATELET VOLUME 7.7 fL (7.4-10.4); PLATELET COUNT 222 x10^3/uL (130-400); RED BLOOD COUNT 4.19 x10^6/uL (4.38-5.82); RED CELL DISTRIBUTION WIDTH 16.3 % (9.4-14.8)
[2019-09-13 04:55] LABS: CHLORIDE 108 mmol/L (98-107)
[2019-09-13 04:59] LABS: ALBUMIN 3.2 g/dL (3.4-5.0); ANION GAP 8 mmol/L (5-15); CREATININE 1.65 mg/dL (0.7-1.3)
[2019-09-13 05:49] LABS: BASOPHILS # (AUTO) 0.02 x10^3/uL (0-0.1); BASOPHILS % (AUTO) 0 % (0-1); EOSINOPHILS % (AUTO) 0 % (1-7); LYMPHOCYTES # (AUTO) 1.46 x10^3/uL (1-3.4); LYMPHOCYTES % (AUTO) 10 % (22-44); MD SCAN; MONOCYTES # (AUTO) 1.15 x10^3/uL (0.2-0.8); MONOCYTES % (AUTO) 8 % (2-9); NEUTROPHILS # (AUTO) 11.93 x10^3/uL (1.8-6.8); NEUTROPHILS % (AUTO) 82 % (42-75)
[2019-09-13] MEDS: ENOXAPARIN 40 MG/0.4 ML SQ SCH (08:36)
[2019-09-13] MEDS: METOPROLOL TARTRATE 50 MG TAB PO SCH ×2 (08:37→17:06)
[2019-09-13] MEDS: GABAPENTIN 300 MG CAPSULE PO SCH ×3 (08:37→20:37)
[2019-09-13] MEDS: MELATONIN 5 MG TABLET PO SCH (20:37)
[2019-09-13] MEDS: TEMAZEPAM 15 MG CAPSULE PO PRN (21:56)
[2019-09-14] MEDS: D5%-0.45NACL+KCL 20MEQ 1,000 ML IV SCH
[2019-09-14] MEDS: ACETAMINOPHEN 500 MG TABLET PO SCH ×4 (00:30→22:16)
[2019-09-14 03:10] VITALS: BP 104/67
[2019-09-14 03:19] LABS: MEAN CORPUSCULAR HGB CONC 33.6 g/dL (33.2-36.2); MEAN CORPUSCULAR VOLUME 98.3 fL (81-97); MEAN PLATELET VOLUME 7.9 fL (7.4-10.4); PLATELET COUNT 192 x10^3/uL (130-400); RED BLOOD COUNT 3.95 x10^6/uL (4.38-5.82)
[2019-09-14 03:29] LABS: ANION GAP 4 mmol/L (5-15); CALCIUM 7.9 mg/dL (8.5-10.1); CHLORIDE 110 mmol/L (98-107); CREATININE 1.61 mg/dL (0.7-1.3)
[2019-09-14 04:25] LABS: BASOPHILS # (AUTO) 0.03 x10^3/uL (0-0.1); BASOPHILS % (AUTO) 0 % (0-1); EOSINOPHILS # (AUTO) 0.07 x10^3/uL (0-0.4); EOSINOPHILS % (AUTO) 1 % (1-7); LYMPHOCYTES % (AUTO) 16 % (22-44); MD SCAN; MONOCYTES # (AUTO) 1.08 x10^3/uL (0.2-0.8); MONOCYTES % (AUTO) 10 % (2-9); NEUTROPHILS # (AUTO) 8.21 x10^3/uL (1.8-6.8); NEUTROPHILS % (AUTO) 73 % (42-75)
[2019-09-14] MEDS: METOPROLOL TARTRATE 50 MG TAB PO SCH ×2 (06:35→18:08)
[2019-09-14 07:22] VITALS: BP_SYST 104; BP_SYST 112; BP_DIAS 67; BP_DIAS 74
[2019-09-14] MEDS: ENOXAPARIN 40 MG/0.4 ML SQ SCH (09:02)
[2019-09-14] MEDS: GABAPENTIN 300 MG CAPSULE PO SCH ×3 (09:03→22:15)
[2019-09-14] MEDS: OXYcodone IR 5MG TABLET PO PRN ×3 (09:03→22:16)
[2019-09-14 12:42] VITALS: BP 99/65
[2019-09-14 18:00] VITALS: BP 125/76
[2019-09-14] MEDS: TEMAZEPAM 15 MG CAPSULE PO PRN (22:15)
[2019-09-14] MEDS: SODIUM CHLORIDE FLUSH 3ML SYRINGE IVF SCH (22:16)
[2019-09-14] MEDS: MELATONIN 5 MG TABLET PO SCH (22:16)
[2019-09-15] MEDS: ACETAMINOPHEN 500 MG TABLET PO SCH ×2 (02:00→06:37)
[2019-09-15 05:58] LABS: BASOPHILS # (AUTO) 0.04 x10^3/uL (0-0.1); BASOPHILS % (AUTO) 0 % (0-1); EOSINOPHILS # (AUTO) 0.16 x10^3/uL (0-0.4); EOSINOPHILS % (AUTO) 2 % (1-7); LYMPHOCYTES # (AUTO) 2.36 x10^3/uL (1-3.4); LYMPHOCYTES % (AUTO) 24 % (22-44); MD NO; MEAN CORPUSCULAR HEMOGLOBIN 32.9 pg (27.5-34.5); MEAN CORPUSCULAR VOLUME 99.7 fL (81-97); MONOCYTES # (AUTO) 0.92 x10^3/uL (0.2-0.8); MONOCYTES % (AUTO) 9 % (2-9); NEUTROPHILS % (AUTO) 65 % (42-75); PLATELET COUNT 205 x10^3/uL (130-400); RED BLOOD COUNT 4.11 x10^6/uL (4.38-5.82)
[2019-09-15 06:04] LABS: ALBUMIN 2.9 g/dL (3.4-5.0); ANION GAP 9 mmol/L (5-15); CALCIUM 8.5 mg/dL (8.5-10.1); CHLORIDE 110 mmol/L (98-107); CREATININE 1.14 mg/dL (0.7-1.3)
[2019-09-15] MEDS: METOPROLOL TARTRATE 50 MG TAB PO SCH (06:36)
[2019-09-15 06:39] VITALS: BP 134/85
[2019-09-15] MEDS: OXYcodone IR 5MG TABLET PO PRN (07:41)
[2019-09-15] MEDS: GABAPENTIN 300 MG CAPSULE PO SCH (08:45)
[2019-09-15] MEDS: SODIUM CHLORIDE FLUSH 3ML SYRINGE IVF SCH (09:00)
[2019-09-15] MEDS ORDERED: OXYC-302 PO (09:13)
== END 2019-09-15 09:55 | disposition home or self-care (01) | DRG 345 ==
LOC: ORIP 05:55 → 4NE 17:20 → DCLOUNGE 09-15 09:45
PROVIDERS: ADMIT Surgery; ATTEND Surgery
PROC: 0DSN4ZZ Reposition Sigmoid Colon, Percutaneous Endoscopic Approach (ICD-10-PCS; 2019-09-12)
PROC: 8E0W8CZ Robotic Assisted Procedure of Trunk Region, Via Natural or Artificial Opening Endoscopic (ICD-10-PCS; principal; 2019-09-12 07:30)
DX: Z43.3 Encounter for attention to colostomy (principal); K62.5 Hemorrhage of anus and rectum; K66.0 Peritoneal adhesions (postprocedural) (postinfection)
CPT/HCPCS: 36415; 80048; 82040; 82962; 85025; 86850; 86900; 88304; 88307; C1729; G0378; J0171; J0690; J1100; J1650; J2250; J2405; J2704; J2710; J3010; P9045; P9047; J0330; J2370; J3480; J7120; U0001-CS